=== PATIENT | female | born 1970 | race Caucasian/White ===

== ENCOUNTER 2022-10-16 06:02 | Day surgery (SDC) | payer OTHER, SELFPAY ==
[2022-10-16 05:56] VITALS: BMI 67.3
[2022-10-16] MEDS: Lactated Ringers 1,000 ML 100 ML IVCONT (06:30)
[2022-10-16 06:33] LABS: UPreg QC Valid YES; Urine Pregnancy NEGATIVE (NEGATIVE)
[2022-10-16 07:07] VITALS: BP 150/84; PULSE 88; RESP 18; TEMP 36.9; O2SAT 95
--- NOTE | 2022-10-16 07:07 | PC.NURSE ---
IV attempt by author. Insertion by nallely ching RN
--- NOTE | 2022-10-16 07:22 | P.CONAN_ITS ---
HPI - Anesthesia Eval Consult details Narrative: Colonoscopy, supermorbid obesity [facility] Past Medical History Medical History Esophageal foreign body GERD (gastroesophageal reflux disease) Hiatal hernia History of COVID-19 TANYA on CPAP Seasonal allergies Family History Family history of problems with anesthesia: No Surgical History Surgical History H/O esophagogastroduodenoscopy H/O repair of right rotator cuff Hx of tympanostomy tubes History of Problems with Anesthesia: No Social History Social History Patient Tobacco Use Status: Never used Tobacco Are you DNR?: No Advance Directives: No Advance Directives Information Provided: Yes Nutrition Risks: No Nutritional Risk FDLMP: two weeks ago Meds Allergies Allergy/AdvReac Type Severity Reaction Status Date / Time penicillin G Allergy Mild Hives Verified 09/01/22 11:51 cinnamon Allergy Unknown Verified 10/15/22 14:02 feathers Allergy Unknown Verified 10/15/22 14:02 latex Allergy Unknown Verified 10/15/22 14:02 levofloxacin [From Levaquin] Allergy Hives Verified 10/15/22 13:57 shellfish derived Allergy Unknown Verified 10/15/22 14:02 Active Medications: Current Medications Albuterol Sulfate (Albuterol Sulfate (0.083%) 2.5 Mg/3 Ml Vial.Neb) 2.5 mg INHALE ONCE PRN PRN Reason: Shortness of Breath/Wheezing Lactated Ringer's (Lr) 1,000 mls @ 100 mls/hr IVCONT .Q10H MELVIN Last Admin: 10/16/22 06:30 Dose: 100 mls/hr Exam Exam Date and Time: October 16, 202222 Height,Weight and Vital Signs: Height 5 ft 6 in Weight 189.148 kg Last Vital Signs Temp 98.4 F 10/16/22 07:07 Pulse 88 10/16/22 07:07 Resp 18 10/16/22 07:07 BP 150/84 H 10/16/22 07:07 Pulse Ox 95 10/16/22 07:07 O2 Del Method Room Air 10/16/22 07:07 Pertinent Lab Results Pertinent Lab Results: Laboratory Tests 10/16/22 06:15 Urine Test NEGATIVE Airway Mallampati Class: III TM Dist: <=3cm Neck ROM: Poor Heart: rrr Lungs: cta Assessment and Plan Assessment Anesthesia Assessment: Anesthesia Plan Discussed and Chart Reviewed Final Anesthetic Review Family History of Problems with Anesthesia: No History of Problems with Anesthesia: No NPO: Yes ASA Class: III Final Preanesthetic Review: No Changes in Pt Med Stat, Meds/Allgs Chart Reviewed, Consent Obtained/Reviewed and Anes Risks/Benef Reviewed Patient Risk: High Procedure Risk: Intermediate Anesthetic Plan Anesthetic Plan: MAC: and Agree w/ Assess. and Plan Disposition: Standard PACU
--- NOTE | 2022-10-16 07:35 | MHC.SHP ---
Pre-Procedural Eval Section A Date of Service: 10/16/22 Section B Chief Complaint: Screening Details of Present Illness: screening Relevant Social History: None Present Medications: see Short Stay Collaborative assessment Medical History: No relevant PMH History of Previous Operations: No relevant previous surgery Allergies: Allergies Allergy/AdvReac Type Severity Reaction Status Date / Time penicillin G Allergy Mild Hives Verified 09/01/22 11:51 cinnamon Allergy Unknown Verified 10/15/22 14:02 feathers Allergy Unknown Verified 10/15/22 14:02 latex Allergy Unknown Verified 10/15/22 14:02 levofloxacin [From Levaquin] Allergy Hives Verified 10/15/22 13:57 shellfish derived Allergy Unknown Verified 10/15/22 14:02 Review of Systems Sugical H&P ROS: Negative: Constitution, Cardiovascular, Respiratory, Neurological, Psychiatric, Hem-Onc, Allergic/Immunologic, Gastrointestinal, Genitourinary, Musculoskeletal, Integumentary, Endocrine and Eyes/Ears/Nose/Throat Exam Surgical H&P Exam: Normal: HEENT, Normal: Heart, Normal: Lungs, Normal: Extremities, Normal: Abdomen, Normal: Skin and Normal: Neurological Plan Diagnosis/Plan: Unchanged I have reviewed the history and physical and performed a pertinent physical examination on my patient. No changes have occurred unless specified. Time Spent With Patient Time: Total time managing care of this patient today ____ minutes.
--- NOTE | 2022-10-16 08:11 | PM.OP ---
Brief Operative Note Date of Service: 10/16/22 Pre-op diagnosis: screening Procedure: colonoscopy Surgeon: Luis Antonio Jarquin Anesthesia: MAC Was an Revenue Investigator used for this Procedure?: No Estimated blood loss (mL): 0 Pathology: other Condition: stable Disposition: PACU
[2022-10-16 08:15] VITALS: BP 151/80; PULSE 67; RESP 16; TEMP 36.4; O2SAT 97
[2022-10-16 08:33] VITALS: BP 154/76; PULSE 53; RESP 17; TEMP 36.1; O2SAT 97
--- NOTE | 2022-10-16 08:37 | OP_ITS ---
DATE OF SERVICE: 10/16/2022 SURGEON: Luis Antonio Jarquin MD INDICATIONS: Colon cancer screening. PREOPERATIVE DIAGNOSIS: POSTOPERATIVE DIAGNOSIS: PROCEDURE PERFORMED: Colonoscopy to the terminal ileum with snare polypectomy. ESTIMATED BLOOD LOSS: COMPLICATIONS: ANESTHESIA: Monitored anesthesia care. ASSISTANTS: SPECIMENS: DESCRIPTION OF PROCEDURE: A history and physical was performed. The risks and benefits of the procedure were explained to the patient. Informed consent was obtained. The patient was placed in the left lateral decubitus position. A digital rectal exam was performed and was found to be normal. The Olympus pediatric video colonoscope was introduced into the rectum and advanced to the cecum without difficulty. The cecum was identified by transillumination, palpation, and identification of ileocecal valve. Examination was performed, and the scope was removed. She tolerated the procedure well and was taken to the recovery area in stable condition. FINDINGS: The terminal ileum was examined and appeared normal. The visualized colonic mucosa was normal. The quality of prep was good. No lesions were seen except for a small 6 mm polyp, which was identified and removed with a snare. The polyp was located at 90 cm from the anal verge. Retroflexed examination showed small internal hemorrhoids. IMPRESSION: Colon polyp. RECOMMENDATION: Follow up the biopsy results. MD DILLON Stanford/MODL / [id number]
== END 2022-10-16 12:14 | disposition home or self-care (01) ==
PROVIDERS: Anesthesiology; PCP Internal Medicine; Visit Provider Internal Medicine Gastroenterology
PROC: 0DJD8ZZ Inspection of Lower Intestinal Tract, Via Natural or Artificial Opening Endoscopic (ICD-10-PCS; CPT 45378; principal; 2022-10-16 07:30)
DX: Z12.11 Encounter for screening for malignant neoplasm of colon (principal); K63.5 Polyp of colon; K64.8 Other hemorrhoids; K21.9 Gastro-esophageal reflux disease without esophagitis; K44.9 Diaphragmatic hernia without obstruction or gangrene; G47.33 Obstructive sleep apnea (adult) (pediatric); Z99.89 Dependence on other enabling machines and devices; Z83.3 Family history of diabetes mellitus; Z83.71 Family history of colonic polyps; Z88.0 Allergy status to penicillin
CPT/HCPCS: 45380; 45385; 81025; 88305

== ENCOUNTER 2023-05-06 11:59 | Outpatient (AMB) | payer OTHER, SELFPAY ==
[2023-05-06 12:02] VITALS: BP 116/68; PULSE 97; TEMP 37.9; O2SAT 96; BMI 67.9
--- NOTE | 2023-05-06 12:02 | AM.OFFWIN_ITS ---
Intake Vital Signs 05/06/23 12:02 Height 5 ft 6 in Weight 421 lb BMI 67.9 BP 116/68 Blood Pressure Location Lt brachial Position Sitting Pulse 97 Pulse Source Pulse Oximeter Temp 100.2 F Temp Source Oral Pulse Oximetry (%) 96 Oxygen Delivery Method Room Air Intake Visit Reasons: EP labored breathing fever congestion cough aches Intake Note: pt is here today for labored breathing fever congestion cough aches started 2 weeks ago Patient Tobacco Use Status: Never used Tobacco Allergies penicillin G Allergy (Mild, Verified 05/06/23 12:03) Hives cinnamon Allergy (Verified 05/06/23 12:03) Unknown feathers Allergy (Verified 05/06/23 12:03) Unknown latex Allergy (Verified 05/06/23 12:03) Unknown levofloxacin [From Levaquin] Allergy (Verified 05/06/23 12:03) Hives shellfish derived Allergy (Verified 05/06/23 12:03) Unknown Medication List - Last Reconciled 05/06/23 by Claudette Mandujano, JOHN albuterol sulfate 90 mcg/actuation 2 inhalations inhalation Q4-6H PRN azithromycin 500 mg PO DAILY 3 days prednisone 50 mg PO DAILY 5 days Do you need a note to return to daycare/school/sports/work: No HPI HPI Comments History of Present Illness Details 52 y/o female who presents to walk in [facility] with c/o URI symptoms. Reports productive cough, hoarseness, Subjective fevers, GI upset and wheezing. Reports that symptoms started ~ 1 week ago. [facility] Medical History TANYA on CPAP Esophageal foreign body History of COVID-19 Hiatal hernia GERD (gastroesophageal reflux disease) Seasonal allergies Surgical History H/O repair of right rotator cuff Hx of tympanostomy tubes H/O esophagogastroduodenoscopy Social History Patient Tobacco Use Status: Never used Tobacco Review of Systems Const All systems reviewed & are unremarkable except as noted in HPI and below Physical Exam Vital Signs: Last Vital Signs Temp 100.2 F 05/06/23 12:02 Pulse 97 05/06/23 12:02 BP 116/68 05/06/23 12:02 Pulse Ox 96 05/06/23 12:02 Oxygen Delivery Method Room Air 05/06/23 12:02 BMI result Body Mass Index 67.9 Const General: no acute distress; No acute distress Nutritional Appearance: obese morbidly obese HEENT Head: Yes normocephalic Ears: external ears normal and TM's normal bilaterally General nose exam: Normal external nose present and Normal nasal mucous membranes and turbinates present Face and sinus: Yes sinuses nontender Mouth: moist mucous membranes Throat: Yes postnasal drainage Resp Effort & Inspection: audible wheezes and Actively coughing Auscultation: no crackles, no rales, no rhonchi and wheezes scattered wheezes Cardio Rate: regular rate Rhythm: regular rhythm Office Procedures Nebulizer Treatment Nebulizer Treatment [id number]-Uvmrxpodu/MDI RX initial, or Nebulizer Subsequent Treatment Office Meds ipratropium 0.5 mg-albuterol 3 mg (2.5 mg base)/3 mL nebulization soln Performing Provider: Claudette Mandujano NP Performing Location: [facility] Administered by: Marissa Velasco RN on 05/06/23 12:44 Dose Route Admin Location Dispensed Lot Number Expiration Date [place] Child Support Specialist 3 mL inhalation 3 mL [id number] 01/04/24 8916-0054-00 [facility] Assessment & Plan Assessment & Plan (1) Upper respiratory infection: Code(s): J06.9 - Acute upper respiratory infection, unspecified Qualifiers: URI type: unspecified viral URI Qualified Code(s): J06.9 - Acute upper respiratory infection, unspecified Plan: - Rest - Warm fluids for hydration - OTC cold medicines - Report any severe SOB, Wheezing, Chest pain, high fevers, nausea and vomiting. (2) Wheezing on auscultation: Code(s): R06.2 - Wheezing Plan: - Rest - Warm fluids for hydration - OTC cold medicines - Report any severe SOB, Wheezing, Chest pain, high fevers, nausea and vomiting. Plan - Rest - Warm fluids for hydration - OTC cold medicines - Report any severe SOB, Wheezing, Chest pain, high fevers, nausea and vomiting. Orders: Orders SARS-CoV2/FLU/RSV Today J06.9 - Acute upper respiratory infection, unspecified, R06.2 - Wheezing AMB Nebulizer Treatment Today R06.2 - Wheezing Medications: New azithromycin 500 mg PO DAILY 3 days 3 tabs 0RF J06.9 - Acute upper respiratory infection, unspecified, R06.2 - Wheezing prednisone 50 mg PO DAILY 5 days 5 tabs 0RF J06.9 - Acute upper respiratory infection, unspecified, R06.2 - Wheezing Changed From albuterol sulfate 90 mcg/actuation 1 inh inhalation Q4-6H PRN 6.7 grams 0RF shortness of breath or wheezing J06.9 - Acute upper respiratory infection, unspecified To albuterol sulfate 90 mcg/actuation 2 inhalations inhalation Q4-6H PRN 8.5 grams 0RF shortness of breath or wheezing J06.9 - Acute upper respiratory infection, unspecified Coding Level of Care Code Est Pt Level 3 (13471) Diagnoses Viral upper respiratory tract infection J06.9 URI type: unspecified viral URI Wheezing on auscultation R06.2 CPT Codes Nebulizer Treatment - Nebulizer Treatment, initial or subsequent: [id number]- Nebulizer/MDI RX initial, or Nebulizer Subsequent Treatment ([id number]) Time Spent (min) 20
== END 2023-05-06 13:36 | disposition home or self-care (01) ==
PROVIDERS: PCP Internal Medicine; Visit Provider Nurse Practitioner Family
DX: J06.9 Acute upper respiratory infection, unspecified (principal); R06.2 Wheezing
CPT/HCPCS: 94640; 99213; J7620

== ENCOUNTER 2023-05-06 17:10 | Outpatient (REF) | payer OTHER, SELFPAY ==
[2023-05-06 17:52] LABS: Influenza A PCR POSITIVE (Negative); Influenza B PCR NEGATIVE (Negative); Resp Syncy Virus RNA Qual PCR NEGATIVE (Negative); SARS COV2 PCR INHOUSE NEGATIVE (Negative)
== END 2023-05-06 17:11 | disposition home or self-care (01) ==
LOC: HO.HMGCLNP 17:10
PROVIDERS: Visit Provider Nurse Practitioner Family
DX: Z11.52 Encounter for screening for COVID-19 (principal); R06.2 Wheezing; J06.9 Acute upper respiratory infection, unspecified
CPT/HCPCS: 0241U

== ENCOUNTER 2023-07-02 10:42 | Outpatient (AMB) | payer OTHER, SELFPAY ==
[2023-07-02 10:45] VITALS: BP 150/100; PULSE 71; TEMP 36.6; O2SAT 97; BMI 67.9
--- NOTE | 2023-07-02 10:45 | MHC.OFFWIV ---
Intake Vital Signs 07/02/23 10:45 Height 5 ft 6 in Weight 421 lb BMI 67.9 BP 150/100 H Blood Pressure Location Lt brachial Position Sitting Pulse 71 Pulse Source Pulse Oximeter Temp 97.8 F Temp Source Temporal Artery Scan Pulse Oximetry (%) 97 Oxygen Delivery Method Room Air Intake Visit Reasons: EP difficulty breathing, chest pain and SOB Intake Note: pt is here today for difficulty breathing chest pain and SOB started 4 days ago Patient Tobacco Use Status: Never used Tobacco Allergies penicillin G Allergy (Mild, Verified 07/02/23 10:49) Hives cinnamon Allergy (Verified 07/02/23 10:49) Unknown feathers Allergy (Verified 07/02/23 10:49) Unknown latex Allergy (Verified 07/02/23 10:49) Unknown levofloxacin [From Levaquin] Allergy (Verified 07/02/23 10:49) Hives shellfish derived Allergy (Verified 07/02/23 10:49) Unknown HPI HPI Comments History of Present Illness Details 53 y/o female patient who presents to walk in clinic with c/o SOB, difficulty moving air and speaking and cough and wheezing. Pt was previously seen by me at Walk in clinic for similar symptoms. She had received Neb Tx in office with good relief. Denies h/o Respiratory problems. [facility] Medical History TANYA on CPAP Esophageal foreign body History of COVID-19 Hiatal hernia GERD (gastroesophageal reflux disease) Seasonal allergies Surgical History H/O repair of right rotator cuff Hx of tympanostomy tubes H/O esophagogastroduodenoscopy Social History Patient Tobacco Use Status: Never used Tobacco Review of Systems Const All systems reviewed & are unremarkable except as noted in HPI and below Physical Exam Vital Signs: Last Vital Signs Temp 97.8 F 07/02/23 10:45 Pulse 71 07/02/23 10:45 BP 150/100 H 07/02/23 10:45 Pulse Ox 97 07/02/23 10:45 Oxygen Delivery Method Room Air 07/02/23 10:45 BMI result Body Mass Index 67.9 Const General: acute distress mild and respiratory; No comfortable Nutritional Appearance: obese morbidly obese Orientation/consciousness: patient oriented x3 HEENT Head: Yes normocephalic Ears: external ears normal and TM's normal bilaterally General nose exam: Normal nasal mucous membranes and turbinates present and No nasal discharge present Mouth: moist mucous membranes Throat: Yes posterior oropharynx normal Resp Effort & Inspection: not able to speak in complete sentences, audible wheezes, Actively coughing and labored Auscultation: no crackles, no rales, rhonchi and wheezes Cardio Rate: regular rate Neuro General: patient oriented x3 Assessment & Plan Assessment & Plan (1) Upper respiratory infection: Code(s): J06.9 - Acute upper respiratory infection, unspecified Qualifiers: URI type: unspecified URI Qualified Code(s): J06.9 - Acute upper respiratory infection, unspecified Plan: - Pt might benefit with referral to Pulmonology. (2) Wheezing on auscultation: Code(s): R06.2 - Wheezing Plan: - In office Neb - Start Symbicort - F/U with PCP if no improvement. Orders: Orders AMB Nebulizer Treatment Today R06.2 - Wheezing Medications: New ipratropium-albuterol 0.5 mg-3 mg(2.5 mg base)/3 mL 3 mL inhalation ONCE 3 mL 0RF R06.2 - Wheezing prednisone 50 mg PO DAILY 5 days 5 tabs 0RF wheezing J06.9 - Acute upper respiratory infection, unspecified, R06.2 - Wheezing azithromycin 500 mg PO DAILY 5 days 5 tabs 0RF J06.9 - Acute upper respiratory infection, unspecified, R06.2 - Wheezing budesonide-formoterol 80-4.5 mcg/actuation (Symbicort) 2 puffs inhalation BID 10.2 grams 1RF wheezing J06.9 - Acute upper respiratory infection, unspecified, R06.2 - Wheezing Coding Level of Care Code Est Pt Level 4 (02621) Diagnoses Upper respiratory tract infection, unspecified type J06.9 URI type: unspecified URI Wheezing on auscultation R06.2 Time Spent (min) 20
== END 2023-07-02 13:59 | disposition home or self-care (01) ==
PROVIDERS: PCP Internal Medicine; Visit Provider Nurse Practitioner Family
DX: J06.9 Acute upper respiratory infection, unspecified (principal); R06.2 Wheezing
CPT/HCPCS: 99214

== ENCOUNTER 2023-09-13 09:53 | Outpatient (AMB) | payer OTHER, SELFPAY ==
[2023-09-13 10:59] VITALS: BP 110/78; PULSE 78; TEMP 37.1; O2SAT 99; BMI 70.8
--- NOTE | 2023-09-13 10:59 | MHC.OFFWIV ---
Intake Vital Signs 09/13/23 10:59 Height 5 ft 6 in Weight 439 lb BMI 70.8 BP 110/78 Blood Pressure Location Lt brachial Position Sitting Pulse 78 Pulse Source Pulse Oximeter Temp 98.7 F Temp Source Temporal Artery Scan Pulse Oximetry (%) 99 Oxygen Delivery Method Room Air Intake Visit Reasons: Cluster headaches (progressively worse) Intake Note: pt is her today for cluster headache on rt side of head started 2 weeks ago Patient Tobacco Use Status: Never used Tobacco Allergies penicillin G Allergy (Mild, Verified 09/13/23 11:06) Hives cinnamon Allergy (Verified 09/13/23 11:06) Unknown feathers Allergy (Verified 09/13/23 11:06) Unknown latex Allergy (Verified 09/13/23 11:06) Unknown levofloxacin [From Levaquin] Allergy (Verified 09/13/23 11:06) Hives shellfish derived Allergy (Verified 09/13/23 11:06) Unknown Do you need a note to return to daycare/school/sports/work: No HPI HPI Comments History of Present Illness Details Patient is a 53-year-old female complaining of 2 weeks of ?cluster GRANADOS which is getting worse. She states she does have a history of migraines but these do not feel like that. She states her psychiatrist without it was a cluster headache due to her increase in anxiety recently. So she prescribed her 0.125 mg of clonazepam she was taking up to 3 of those at a time which seemed to help on and Wednesday. She states that on Wednesday which was 2 days ago, her headaches have been getting worse. She denies any photophobia or phonophobia or tearing of her eyes. She describes the pain as a stabbing on the top of her head on the right side that radiates down the right side of her neck. She does endorse some nausea but no vomiting. She is teary and struggling to articulate her words. She describes this headache as ?the worst headache of her life . She has tried taking Motrin and Tylenol as well and those are not working. She states she has not had migraine medication in years but again states this does not feel like her typical migraine. [facility] Medical History (Updated 09/13/23 @ 11:27 by Melissa Massey PA-C) TANYA on CPAP Esophageal foreign body History of COVID-19 Hiatal hernia GERD (gastroesophageal reflux disease) Seasonal allergies Surgical History H/O repair of right rotator cuff Hx of tympanostomy tubes H/O esophagogastroduodenoscopy Social History Patient Tobacco Use Status: Never used Tobacco Review of Systems Const All systems reviewed & are unremarkable except as noted in HPI and below Physical Exam Vital Signs: Last Vital Signs Temp 98.7 F 09/13/23 10:59 Pulse 78 09/13/23 10:59 BP 110/78 09/13/23 10:59 Pulse Ox 99 09/13/23 10:59 Oxygen Delivery Method Room Air 09/13/23 10:59 BMI result Body Mass Index 70.8 Const General: cooperative, healthy appearing, well developed and acute distress (teary) Nutritional Appearance: obese Orientation/consciousness: patient oriented x3 Limitations: no limitations HEENT Head: Yes normal to inspection Eyes General: appearance normal, both eyes and all related structures Neck Neck: Yes normal visual inspection and Yes full ROM Resp Effort & Inspection: normal respiratory effort and able to speak in complete sentences Skin General skin exam: no rashes or lesions noted Neuro General: patient oriented x3 Extrem General: Yes normal to inspection Assessment & Plan Assessment & Plan (1) Headache: Code(s): R51.9 - Headache, unspecified Qualifiers: Headache type: unspecified Headache chronicity pattern: acute headache Intractability: intractable Qualified Code(s): R51.9 - Headache, unspecified Plan: Sent to Emergency Department, called in for [facility] to expect the patient. Her friend is driving her. Plan See above Coding Level of Care Code Est Pt Level 5 (10050) Diagnoses Acute intractable headache, unspecified headache type R51.9 Headache type: unspecified Headache chronicity pattern: acute headache Intractability: intractable
== END 2023-09-13 11:50 | disposition home or self-care (01) ==
PROVIDERS: PCP Internal Medicine; Visit Provider Physician Assistant
DX: R51.9 Headache, unspecified (principal)
CPT/HCPCS: 99213

== ENCOUNTER 2023-09-13 11:42 | Emergency (ER) | payer OTHER, SELFPAY ==
--- NOTE | ~2023-09-13 | CT_ITS ---
EXAMINATION: CT ANGIOGRAM HEAD CT ANGIOGRAM NECK CLINICAL INFORMATION: Headache. Aneurysm. COMPARISON: None available. TECHNIQUE: Initial noncontrast switchboard operator assistant imaging of the head and neck was performed. Noncontrast head CT was also performed. Test bolus sequences followed by intravenous administration 70 mL of Omnipaque 350. Helical imaging was performed in the axial plane from the aortic arch to the skull vertex. Delayed postcontrast imaging of the head was also performed. The data was processed at the product/device technologist's workstation for generation of MIP sequences. Angled MIPs and volume rendered reformatted images were also generated at an offline 3D workstation. Stenoses are assessed in accordance with NASCET criteria unless otherwise indicated. This CT examination was performed using dose optimization techniques as appropriate, variously including the following: *Automated exposure control. *Adjustment of mA and/or kV according to patient size (this includes techniques or standardized protocols for targeted exams where dose is matched to indication/reason for exam; i.e. extremities or head). *Use of iterative reconstruction technique. DLP: 2740 mGy-cm FINDINGS: CT Head: There is no evidence of acute intracranial hemorrhage or edematous territorial infarction. [place]-white matter differentiation is preserved. There is no abnormal attenuation within the brain parenchyma. The ventricles are normal in morphology and size. No evidence for obstructive hydrocephalus. Moderate expansion of the sella turcica with partial flattening of the pituitary gland. Normal positioning of the cerebellar tonsils. No abnormal mass effect or midline shift. No extra-axial fluid collections. No pathologic intra-axial enhancement or regional oligemia. No acute soft tissue or osseous abnormalities. Mild mucosal thickening of the paranasal sinuses. The mastoid air cells and middle ear cavities are clear. CT Neck: The thyroid gland and remaining cervical soft tissues are within normal limits. Straightening of the normal cervical lordosis. Moderate degenerative disc disease from C4-C7. Left central partial ossification of the posterior longitudinal ligament at the level of C5-C6. Facet and uncovertebral joint arthropathy leads to osseous encroachment on the neural foramina from C3-C6. CT Upper Chest: The visualized lung apices and upper mediastinum are within normal limits. Neck CTA: Aortic Arch: Normal contour and caliber. Classic 3 vessel branching pattern of the aortic arch. Great Vessel Origins: No significant stenosis of the branch origins. Right Common Carotid Artery: No focal stenosis or occlusion. Cervical Right Internal Carotid Artery: Normal opacification without focal stenosis or occlusion. Retropharyngeal course. Left Common Carotid Artery: No focal stenosis or occlusion. Cervical Left Internal Carotid Artery: Normal opacification without focal stenosis or occlusion. Retropharyngeal course. Cervical Right Vertebral Artery: Co-dominant. No focal stenosis or occlusion. Cervical Left Vertebral Artery: Co-dominant. No focal stenosis or occlusion. Brain CTA: Intracranial Internal Carotid Arteries: No focal stenosis or occlusion. Right Anterior Cerebral Artery: Normal A1 segment. Normal opacification of the distal RACHEL segments. Left Anterior Cerebral Artery: Normal A1 segment. Normal opacification of the distal RACHEL segments. Anterior Communicating Artery: Normal. Right Middle Cerebral Artery: Normal M1 segment of the MCA without focal stenosis or occlusion. Normal arborization of the distal segments. Left Middle Cerebral Artery: Normal M1 segment of the MCA without focal stenosis or occlusion. Normal arborization of the distal segments. Right Vertebral Artery: Normal V4 segment. Normal opacification of the proximal segments of the posterior inferior cerebellar artery. Left Vertebral Artery: Normal V4 segment. Normal opacification of the proximal segments of the posterior inferior cerebellar artery. Basilar Artery: Normal without focal stenosis or occlusion. Normal appearance of the proximal superior cerebellar arteries. Right Posterior Cerebral Artery: Normal P1 segment. Normal opacification of the distal ORACLE ETL DEVELOPER segments. Left Posterior Cerebral Artery: Normal P1 segment. Normal opacification of the distal ORACLE ETL DEVELOPER segments. Normal opacification of the superior sagittal, straight, transverse, and sigmoid sinuses. CT/CT angio head neck IMPRESSION: 1. No evidence of acute intracranial hemorrhage or edematous territorial infarction. 2. CTA of the head and neck without proximal occlusion or flow-limiting stenosis. No demonstrated intracranial aneurysm. 3. Moderate multilevel degenerative spondyloarthropathy of the cervical spine. Partial ossification of the posterior longitudinal ligament at the level of C5-C6. Osseous encroachment on the neural foramina from C3-C6.
[2023-09-13 13:15] VITALS: BP 153/102; PULSE 69; RESP 26; TEMP 36.4; O2SAT 99; BMI 69.4
--- NOTE | 2023-09-13 13:18 | ED_ITS ---
HPI - General Adult General Chief complaint: Headache Stated complaint: Headache 12 days Time Seen by Provider: 09/13/23 13:44 Source: patient and family Mode of arrival: ambulatory Limitations: no limitations History of Present Illness ED Provider: DR. Kirby HPI narrative: 53-year-old female came in for evaluation of headache for the past 12 days. For the past 12 days patient been having fluctuating headache that is all was constant for the past 12 days but waxes and wanes, headache is associated with nausea but no vomiting, no photophobia, no neck stiffness, no fever, no chills. Patient is known to have anxiety and was evaluated for this headache by PCP and psychiatrist patient was prescribed benzos PRN for headache. No trauma, no fall or head injury. No family history of cerebral aneurysm, brain bleed. Related Data Previous Rx's ?Medication ?Instructions ?Recorded albuterol sulfate 90 mcg/actuation 2 inh inhalation Q4-6H PRN 05/06/23 aerosol inhaler shortness of breath or wheezing #8.5 grams azithromycin 500 mg tablet 500 mg PO DAILY 5 days #5 tabs 07/02/23 fluticasone furoate 100 1 inh inhalation DAILY #60 ea 07/02/23 mcg-vilanterol 25 mcg/dose inhalation powder (Breo Ellipta) prednisone 50 mg tablet 50 mg PO DAILY wheezing 5 days #5 07/02/23 tabs Allergies Allergy/AdvReac Type Severity Reaction Status Date / Time penicillin G Allergy Mild Hives Verified 09/13/23 13:19 cinnamon Allergy Unknown Verified 09/13/23 13:19 feathers Allergy Unknown Verified 09/13/23 13:19 latex Allergy Unknown Verified 09/13/23 13:19 levofloxacin [From Levaquin] Allergy Hives Verified 09/13/23 13:19 shellfish derived Allergy Unknown Verified 09/13/23 13:19 Review of Systems 2 Review of Systems: All other systems are reviewed and are negative Constitutional: Reports as per HPI and Reports no additional constitutional complaints Eyes: Reports as per HPI and Reports no additional eye complaints Reports system reviewed and no additional complaints, except as documented Cardiovascular: Reports as per HPI and Reports no additional cardiovascular complaints Respiratory: Reports as per HPI and Reports no additional respiratory complaints Gastrointestinal: Reports as per HPI and Reports no additional gastrointestinal complaints Genitourinary: Reports no additional female genitourinary complaints Musculoskeletal: Reports no additional musculoskeletal complaints Skin/Breast: Reports system reviewed and no additional complaints, except as docu Psychiatric: Reports no additional psychiatric complaints Endocrine: Reports no additional endocrine complaints Hematologic/Lymphatic: Reports no additional hematologic/lymphatic complaints Allergic/Immunologic: Reports no additional allergic/immunologic complaints Reports system reviewed and no additional complaints, except as documented and Reports Abnormal speech present REPLACED BY [facility] Past Medical History Medical History TANYA on CPAP Esophageal foreign body History of COVID-19 Hiatal hernia GERD (gastroesophageal reflux disease) Seasonal allergies Surgical History H/O repair of right rotator cuff Hx of tympanostomy tubes H/O esophagogastroduodenoscopy Social History Social History Patient Tobacco Use Status: Never used Tobacco Advance Directives: No Advance Directives Information Provided: No Do you have a plan to hurt others: No Plan Physical Exam ED Vital Signs: Vital Signs - 24 hr 09/13/23 13:15 09/13/23 16:09 09/13/23 16:12 Temperature 97.5 F 98.1 F Pulse Rate 69 72 Respiratory Rate 26 H 18 Blood Pressure 153/102 H 138/90 H 138/90 H Pulse Oximetry 99 99 Oxygen Delivery Method Room Air Room Air BMI result Body Mass Index 69.4 Vital signs have been reviewed and appear to be correct. Blood pressure elevated. Heart rate normal. Respiratory rate normal. Temperature normal. Oxygen saturation normal. Appearance: Alert. Oriented X3. No acute distress. Head: Normal external exam. Normocephalic. Atraumatic. No [place] signs noted. No raccoon eyes noted Eyes: PERRLA. EOMI. Conjunctiva and sclera normal. Eyelids normal. ENT: TM's Normal. Pharynx normal. Uvula midline. Moist mucous membranes. No trismus noted. No drooling noted. No muffled voice noted. Neck: Normal inspection. Neck supple. FROM. No adenopathy. Thyroid Normal. No meningeal signs. No neck mass noted. CVS: Normal heart rate and rhythm. Heart sound normal. No murmurs noted. Pulses normal throughout. Respiratory: No respiratory distress. Painless inspiration. Breath sounds normal. No wheezes/rales/rhonchi noted. Chest nontender. No accessory muscle usage noted or decreased air movement noted. Abdomen: Soft and nontender. Bowel sounds normal in all 4 quadrants. No distention noted. No organomegaly noted. No visible injury noted. Back: No CVA tenderness. Full range of motion noted. Skin: Skin warm and dry. Normal skin color. Normal skin turgor. No rashes/lesions/lacerations noted. Extremities: No lower extremity edema. Extremities exhibit normal range of motion. Extremities nontender. Neuro: Oriented X 3. Cranial nerve exam: II-XII are grossly intact No motor deficit. No sensory deficit. Reflexes normal. NIH Stroke Scale Time: 14:05 Level of Consciousness: Alert Level of Consciousness Questions: Answers both questions correctly Level of Consciousness Commands: Performs both tasks correctly Best Gaze: Normal Visual: No visual loss Facial Palsy: Normal Motor Arm (Right): No drift Motor Arm (Left): No drift Motor Leg (Right): No drift Motor Leg (Left): No drift Limb Ataxia: Absent Sensory: Normal Best Language: No aphasia Dysarthia: Normal Extinction and Inattention: No abnormality Score: 0 Course Course Course Narrative: RME performed by Dennise Chavira PA-C. Patient is a 53 year old assigned female at presenting to the emergency department with a sudden onset right sided headache. Patient states she is having a right sided headache that is the worst of her life. Detailed physical exam and review of systems are deferred to the chemical dependency nurse. Labs, imaging, and swabs ordered. Patient placed back in the waiting room pending room availability and results. Reevaluation(s) Reevaluation #1: Constant headache for 12 days at waxes and wanes, normal neuro exam, patient is pending head CT and CT angio rule out aneurysm, the case signed out to Dr. good Patient noted to be hypertensive in the emergency department was given amlodipine will check serial blood pressure while in the ED and consider if patient need to be on antihypertensive medication, the case was discussed with Dr. Good. Time: 15:45 Medications Administered Discontinued Medications Generic Name Dose Route Start Last Admin Trade Name Freq PRN Reason Stop Dose Admin Amlodipine Besylate 2.5 mg 09/13/23 15:51 09/13/23 16:09 Amlodipine Besylate 2.5 Mg Tablet PO 09/13/23 15:52 2.5 mg ONCE ONE Administration Protocol Diphenhydramine HCl 50 mg 09/13/23 14:01 09/13/23 14:26 Diphenhydramine Hcl 50 Mg/Ml Vial IVPUSH 09/13/23 14:02 50 mg ONCE ONE Administration Sodium Chloride 1,000 mls @ 999 mls/hr 09/13/23 14:01 09/13/23 14:50 Ns IV 09/13/23 15:01 999 mls/hr .Q1H1M ONE Administration Ondansetron HCl 4 mg 09/13/23 14:01 09/13/23 14:26 Ondansetron Hcl 4 Mg/2 Ml Vial IVPUSH 09/13/23 14:02 4 mg ONCE ONE Administration Medical Decision Making Differential Diagnosis Differential Diagnoses: The differential diagnosis associated with the presentation includes (Intracranial bleed, intracranial aneurysm, cluster headache, migraine, electrolyte derangement, severe anemia, hypertension.) Admission/Observation Consideration of admission/observation: Escalation of care including admission/observation considered Lab Data MDM Lab Attestation statement: I reviewed the patient's lab results. 09/13/23 13:43 09/13/23 13:43 Labs: Lab Results 09/13/23 09/13/23 Range/Units 13:43 13:46 WBC 8.4 (4.8-10.8) X10*3/uL RBC 5.34 (4.20-5.50) X10*6/uL Hgb 15.1 (12.0-16.0) g/dl Hct 44.7 (37.0-47.0) % MCV 83.7 (80.0-98.0) fL MCH 28.3 (27.0-33.0) pg MCHC 33.8 (31.0-35.0) g/dl RDW 15.3 (11.0-16.0) % Plt Count 211 (160-400) X10*3/uL MPV 8.3 L (9.4-12.3) fL Immature Gran % (Auto) 0.5 H (0.0-0.4) % Neut % (Auto) 55.5 (45-73) % Lymph % (Auto) 35.1 (20-40) % [place] % (Auto) 5.7 (2-11) % Eos % (Auto) 2.6 (0-4) % Baso % (Auto) 0.6 (0-2) % Lymph # (Auto) 2.9 (1.2-4.9) X10*3/uL [place] # (Auto) 0.5 (0.1-1.2) X10*3/uL Eos # (Auto) 0.2 (0.0-0.4) X10*3/uL Baso # (Auto) 0.1 (0.0-0.2) X10*3/uL Abs Immat Gran (auto) 0.04 H (0.00-0.03) X10*3/uL Absolute Neuts (auto) 4.7 (2.0-8.3) x10*3/uL Absolute Nucleated RBC 0.000 (0.0-0.012) X10*3/uL Nucleated RBC % (auto) 0.0 (0.0-0.2) /100WBC PT 11.3 (11.1-13.3) SEC INR 0.9 (0.9-1.1) APTT 32.6 (26.0-36.8) SEC Sodium 140 (135-145) mmol/L Potassium 4.1 (3.3-5.1) mmol/L Chloride 106 (96-108) mmol/L Carbon Dioxide 27 (22-29) mmol/L Anion Gap 11 L (12-20) BUN 19 H (9-16) mg/dL Creatinine 0.73 (0.5-1.4) mg/dL Estim Creat Clear Calc 163.5 Estimated GFR > 60 Random Glucose 92 (60-115) mg/dL Calcium 9.5 (8.4-10.2) mg/dL Magnesium 1.8 (1.6-2.6) mg/dL Total Bilirubin 0.7 (0.0-1.0) mg/dL AST 14 (5-31) U/L ALT 17 (0-31) U/L Alkaline Phosphatase 54 (39-117) U/L Total Protein 7.4 (6.5-8.0) g/dL Albumin 4.4 (3.5-5.0) g/dL Urine Color Yellow Urine Appearance Clear Urine pH 6.0 (5.0-9.0) Ur Specific [place] 1.015 (1.005-1.025) Urine Protein Negative (Neg-Trace) mg/dL Urine Glucose (UA) Negative (Negative) mg/dL Urine Ketones Negative (Negative) mg/dL Urine Blood Negative (Negative) Urine Nitrite Negative (Negative) Ur Leukocyte Esterase Moderate (2+) H (Negative) Urine RBC 0-2 (0-2) /HPF Urine WBC 21-50 H (0-5) /HPF Ur Squamous Epith Cells 6-10 (0-2) /HPF Urine Bacteria 1+ (None Seen) Hyaline Casts 0-2 (0-2) /LPF Urine Opiates Screen Not Detected (Not Detect) Ur Buprenorphine Scrn Not Detected (Not Detect) ng/mL Ur Oxycodone Screen Not Detected (Not Detect) ng/mL Urine Methadone Screen Not Detected (Not Detect) ng/mL Urine Fentanyl Screen Not Detected (Not Detect) Ur Barbiturates Screen Not Detected (Not Detect) Ur Phencyclidine Scrn Not Detected (Not Detect) Ur Amphetamines Screen Not Detected (Not Detect) U Benzodiazepines Scrn Not Detected (Not Detect) Urine Cocaine Screen Not Detected (Not Detect) U Marijuana (THC) Screen Not Detected (Not Detect) Influenza Type A (PCR) NEGATIVE (Negative) Influenza Type B (PCR) NEGATIVE (Negative) RSV RNA Qual (PCR) NEGATIVE (Negative) SARS-CoV-2 RNA (RT-PCR) NEGATIVE (Negative) Discharge Plan Discharge Clinical Impression: Hypertension Headache Qualifiers: Headache type: unspecified Headache chronicity pattern: acute headache I ntractability: intractable Qualified Code(s): R51.9 - Headache, unspecified Patient Disposition: Still a Patient Prescriptions: No Action albuterol sulfate 90 mcg/actuation HFA aerosol inhaler 2 inh inhalation Q4-6H PRN (Reason: shortness of breath or wheezing) Qty: 8.5 0RF ipratropium-albuterol 0.5 mg-3 mg(2.5 mg base)/3 mL solution for nebulization 3 ml inhalation ONCE Qty: 3 0RF prednisone 50 mg tablet 50 mg PO DAILY 5 Days Qty: 5 0RF azithromycin 500 mg tablet 500 mg PO DAILY 5 Days Qty: 5 0RF fluticasone furoate-vilanterol [Breo Ellipta] 100-25 mcg/dose blister with device 1 inh inhalation DAILY Qty: 60 1RF Print Language: [place]
[2023-09-13 13:47] LABS: MANUAL DIFF FLAG NO
[2023-09-13 13:50] LABS: Basophils Absolute Auto 0.1 X10*3/uL (0.0-0.2); Basophils Percent Auto 0.6 % (0-2); Eosinophils Absolute Auto 0.2 X10*3/uL (0.0-0.4); Eosinophils Percent Auto 2.6 % (0-4); Hematocrit 44.7 % (37.0-47.0); Hemoglobin 15.1 g/dl (12.0-16.0); Imm Gran Abs Auto 0.04 X10*3/uL (0.00-0.03); Imm Gran Pct Auto 0.5 % (0.0-0.4); Lymphocytes Absolute Auto 2.9 X10*3/uL (1.2-4.9); Lymphocytes Percent Auto 35.1 % (20-40); Mean Corpuscular HGB Conc 33.8 g/dl (31.0-35.0); Mean Corpuscular Hemoglobin 28.3 pg (27.0-33.0); Mean Corpuscular Volume 83.7 fL (80.0-98.0); Mean Platelet Volume 8.3 fL (9.4-12.3); Monocytes Absolute Auto 0.5 X10*3/uL (0.1-1.2); Monocytes Percent Auto 5.7 % (2-11); Neutrophils Absolute Auto 4.7 x10*3/uL (2.0-8.3); Neutrophils Percent Auto 55.5 % (45-73); Platelet Count 211 X10*3/uL (160-400); Red Blood Count 5.34 X10*6/uL (4.20-5.50); Red Cell Distribution Width 15.3 % (11.0-16.0); White Blood Count 8.4 X10*3/uL (4.8-10.8)
[2023-09-13 13:53] LABS: Appearance Urine Clear; Color Urine Yellow; Glucose Urine UA Negative (Negative); Leukocyte Esterase Urine Moderate (2+) (Negative); Nitrite Urine Negative (Negative); Specific Gravity - Urine 1.015 (1.005-1.025); UMIC TRIGGER UACC YES; Urine Blood Negative (Negative); Urine Ketones Negative (Negative); Urine Protein Negative (Neg-Trace)
[2023-09-13 13:56] LABS: Bacteria Urine 1+ (None Seen); Hyaline Casts Urine 0-2 /LPF (0-2); RBC Urine 0-2 /HPF (0-2); UACC Culture Trigger YES; WBC Urine 21-50 /HPF (0-5)
[2023-09-13 14:00] LABS: INTERNATIONAL NORM RATIO 0.9 (0.9-1.1); Prothrombin Time 11.3 SEC (11.1-13.3)
[2023-09-13 14:03] LABS: Alanine Aminotransferase 17 U/L (0-31); Albumin Level 4.4 g/dL (3.5-5.0); Alkaline Phosphatase 54 U/L (39-117); Anion Gap 11 (12-20); Aspartate Amino Transferase 14 U/L (5-31); Bilirubin Total 0.7 mg/dL (0.0-1.0); Blood Urea Nitrogen 19 mg/dL (9-16); Calcium 9.5 mg/dL (8.4-10.2); Carbon Dioxide 27 mmol/L (22-29); Chloride 106 mmol/L (96-108); Creatinine Clr Calc Pharmacy 163.5; Estimated Glomerular Filt Rate > 60; Glucose Random 92 mg/dL (60-115); Magnesium 1.8 mg/dL (1.6-2.6); Partial Thromboplastin Time 32.6 SEC (26.0-36.8); Potassium 4.1 mmol/L (3.3-5.1); Sodium 140 mmol/L (135-145); Total Protein 7.4 g/dL (6.5-8.0)
[2023-09-13 14:07] LABS: Amphetamine Screen Urine Not Detected (Not Detect); Barbiturates, Urine Not Detected (Not Detect); Benzodiazepines Screen Urine Not Detected (Not Detect); Buprenorphine Scr Not Detected (Not Detect); Cannabinoid Screen Urine Not Detected (Not Detect); Cocaine Screen Urine Not Detected (Not Detect); Fentanyl, urine Not Detected (Not Detect); Methadone Screen, Urine Not Detected (Not Detect); Opiate Screen Urine Not Detected (Not Detect); Oxycodone Screen Urine Not Detected (Not Detect); Phencyclidine Screen Urine Not Detected (Not Detect)
[2023-09-13] MEDS: ondansetron HCL 4 MG/2 ML VIAL IVPUSH (14:26)
[2023-09-13] MEDS: diphenhydrAMINE HCL 50 MG/ML VIAL IVPUSH (14:26)
[2023-09-13 14:30] LABS: Influenza A PCR NEGATIVE (Negative); Influenza B PCR NEGATIVE (Negative); Resp Syncy Virus RNA Qual PCR NEGATIVE (Negative); SARS COV2 PCR INHOUSE NEGATIVE (Negative)
[2023-09-13] MEDS: 0.9 % Sodium Chloride 1,000 ML 999 ML IV (14:50)
[2023-09-13 16:09] VITALS: BP 138/90
[2023-09-13] MEDS: amLODIPine Besylate 2.5 MG TABLET PO (16:09)
[2023-09-13 16:12] VITALS: BP 138/90; PULSE 72; RESP 18; TEMP 36.7; O2SAT 99
--- NOTE | 2023-09-13 16:42 | PC.NURSE ---
Patient currently at CT
[2023-09-13] MEDS: iohexoL 350 MG/ML 100 ML INFUS..BTL 85 ML IV (17:10)
[2023-09-13] MEDS: SUMAtriptan succinate 6 MG/0.5 ML VIAL SUBCUT (18:38)
[2023-09-13] MEDS: Ketorolac Tromethamine 30 MG/ML VIAL IVPUSH (18:38)
[2023-09-13] MEDS: cefuroxime axetiL 250 MG TABLET PO (18:38)
[2023-09-13 19:35] VITALS: BP 136/65; PULSE 68; RESP 20; TEMP 36.4; O2SAT 95
== END 2023-09-13 19:37 | disposition home or self-care (01) ==
PROVIDERS: Physician Assistant Medical; Emergency Provider Emergency Medicine
DX: R51.9 Headache, unspecified (principal); I10 Essential (primary) hypertension; Z03.818 Encounter for observation for suspected exposure to other biological agents ruled out
CPT/HCPCS: 0241U; 70496; 70498; 80053; 80307; 81001; 83735; 85025; 85610; 85730; 87086; 96361; 96372; 96374; 96375; 99284; 99285; J1200; J1885; J2405; J3030; Q9967

== ENCOUNTER 2023-12-03 14:02 | Outpatient (AMB) | payer OTHER, SELFPAY ==
[2023-12-03 14:07] VITALS: BP 144/82; PULSE 111; TEMP 36.8; O2SAT 99; BMI 69.8
--- NOTE | 2023-12-03 14:07 | AM.OFFWIN_ITS ---
Intake Vital Signs 12/03/23 14:07 Height 5 ft 6 in Weight 432 lb 8 oz BMI 69.8 BP 144/82 H Blood Pressure Location Lt brachial Position Sitting Pulse 111 H Pulse Source Pulse Oximeter Temp 98.3 F Temp Source Oral Pulse Oximetry (%) 99 Oxygen Delivery Method Room Air Intake Visit Reasons: EP-sob, cough and chest thightness Intake Note: Pt presents to the office today for c/o sob, cough, and sinus pressure that started 3 days ago. She states she was seen by her PCP on 11/24/23 and was given a steroid and antibiotic due to a upper respiratory infection but states it is coming back now. Patient Tobacco Use Status: Never used Tobacco Allergies penicillin G Allergy (Mild, Verified 12/03/23 14:11) Hives cinnamon Allergy (Verified 12/03/23 14:11) Unknown feathers Allergy (Verified 12/03/23 14:11) Unknown latex Allergy (Verified 12/03/23 14:11) Unknown levofloxacin [From Levaquin] Allergy (Verified 12/03/23 14:11) Hives shellfish derived Allergy (Verified 12/03/23 14:11) Unknown HPI HPI Comments History of Present Illness Details 53 y/o female patient who presents to [facility] walk in clinic with c/o cough, SOB, wheezing and chest tightness for few days. She was recently treated for Pneumonia in the beginning of November with Azithromycin and Prednisone. [facility] Medical History TANYA on CPAP Esophageal foreign body History of COVID-19 Hiatal hernia GERD (gastroesophageal reflux disease) Seasonal allergies Surgical History H/O repair of right rotator cuff Hx of tympanostomy tubes H/O esophagogastroduodenoscopy Social History Patient Tobacco Use Status: Never used Tobacco Review of Systems Const All systems reviewed & are unremarkable except as noted in HPI and below Physical Exam Vital Signs: Last Vital Signs Temp 98.3 F 12/03/23 14:07 Pulse 111 H 12/03/23 14:07 BP 144/82 H 12/03/23 14:07 Pulse Ox 99 12/03/23 14:07 Oxygen Delivery Method Room Air 12/03/23 14:07 BMI result Body Mass Index 69.8 Const General: cooperative and no acute distress Nutritional Appearance: obese morbidly obese Orientation/consciousness: patient oriented x3 Resp Effort & Inspection: normal respiratory effort Auscultation: no crackles, no rales, rhonchi throughout and wheezes throughout Cardio Heart sounds: S1 normal heart sound present and S2 normal heart sound present Skin General skin exam: no rashes or lesions noted Neuro General: patient oriented x3, gait normal and moves all extremities Psych Speech and movement: Normal speech and movement present Assessment & Plan Assessment & Plan (1) Wheezing on auscultation: Code(s): R06.2 - Wheezing Plan: Ordered chest Xray Ordered Abx ordered Prednisone (2) Cough in adult: Code(s): R05.9 - Cough, unspecified Plan: Ordered chest Xray Ordered Abx ordered Prednisone Orders: Orders XR chest 2V Today R05.9 - Cough, unspecified, R06.2 - Wheezing Medications: New prednisone 20 mg PO DAILY 10 tabs 0RF R05.9 - Cough, unspecified, R06.2 - Wheezing doxycycline hyclate 100 mg PO BID 20 caps 0RF 10 days R05.9 - Cough, unspecified, R06.2 - Wheezing lefamulin 600 mg PO Q12H 10 tabs 0RF 5 days R05.9 - Cough, unspecified, R06.2 - Wheezing Coding Level of Care Code Est Pt Level 4 (05526) Diagnoses Wheezing on auscultation R06.2 Cough in adult R05.9 Time Spent (min) 20
== END 2023-12-03 15:11 | disposition home or self-care (01) ==
PROVIDERS: Visit Provider Nurse Practitioner Family
DX: R06.2 Wheezing (principal); R05.9 Cough, unspecified
CPT/HCPCS: 99214

== ENCOUNTER 2023-12-03 14:42 | Outpatient (REF) | payer OTHER, SELFPAY ==
--- NOTE | ~2023-12-03 | XR_ITS ---
EXAMINATION: XR CHEST CLINICAL INFORMATION: Wheezing COMPARISON: None available. TECHNIQUE: 2 views of the chest were obtained. FINDINGS: No significant abnormality is noted involving the heart, lungs, mediastinum, bony thorax or soft tissues. XR/XR chest 2V IMPRESSION: Unremarkable examination. Electronically signed by: Danie Laurent MD 12/03/2023 04:33 PM EDT RP
== END 2023-12-03 14:43 | disposition home or self-care (01) ==
LOC: HO.HMGCX 14:42
PROVIDERS: PCP Internal Medicine; Visit Provider Nurse Practitioner Family
DX: R06.2 Wheezing (principal); R05.9 Cough, unspecified
CPT/HCPCS: 71046

== ENCOUNTER 2024-06-05 12:51 | Outpatient (AMB) | payer OTHER, SELFPAY ==
--- NOTE | 2024-06-05 12:59 | AM.OFFWIN_ITS ---
Intake Vital Signs 06/05/24 13:02 Weight 420 lb BP 130/84 Blood Pressure Location Lt brachial Position Sitting Pulse 96 Pulse Source Pulse Oximeter Temp 98.7 F Temp Source Oral Pulse Oximetry (%) 98 Oxygen Delivery Method Room Air Intake Visit Reasons: EP-SOB, home testing positive covid Intake Note: Patient here for chills, SOB, loss of voice and bilat ear pain. She did take a covid test which was positive. Patient Tobacco Use Status: Never used Tobacco Allergies penicillin G Allergy (Mild, Verified 06/05/24 13:01) Hives cinnamon Allergy (Verified 06/05/24 13:01) Unknown feathers Allergy (Verified 06/05/24 13:) Unknown latex Allergy (Verified 06/05/24 13:) Unknown levofloxacin [From Levaquin] Allergy (Verified 06/05/24 13:) Hives shellfish derived Allergy (Verified 06/05/24 13:) Unknown Do you need a note to return to daycare/school/sports/work: No HPI HPI Comments History of Present Illness Details History - The patient is a 53-year-old female pr esenting with fever, shortness of breath, and cough. - Symptoms commenced suddenly the previo us morning, including chills and a sensation of heaviness in the chest. - Positivity for COVID-19 has been indic ated through two rapid tests, despite the initial test's expiration. - Shortness of breath has intensified, a ccompanied by a productive cough with red-speckled sputum. - A fever recorded at 101?F was alleviat ed with Tylenol. - There is no pertinent history of smoki ng, asthma, or COPD. - The patient's health history includes episodes treated as upper respiratory infections, for which inhalers were prescribed. - She expresses compliance with receivin g a flu vaccine this year - Shortness of breath is exacerbated by physical activity and less prominent while at rest. Physical Exam General: Cooperative, healthy appearing, comfortable and no acute distress Orientation/consciousness: Patient oriented x3 Limitations: No limitations Head: Normal to inspection Ears: Hearing grossly normal bilaterally, external ears normal and TM's normal bilaterally Nose: Normal external nose present, Normal nares present and No nasal discharge present Face and sinus: Normal facial exam and Yes sinuses nontender Mouth: Normal oral and palatal mucosa present and moist mucous membranes Throat: Yes tonsils normal, Yes uvula midline. Posterior oropharynx erythema Eyes: Appearance normal, both eyes and all related structures Neck: Normal visual inspection Respiratory: Clear to auscultation bilaterally. Normal respiratory effort, able to speak in complete sentences, Actively coughing, no respiratory distress, not tachypneic, no tripod positioning and no use of accessory muscles Cardiovascular: Regular rate and rhythm. Normal S1 and S2 Skin: No rashes or lesions noted Neuro: Patient oriented x3 Extremities: Normal to inspection and Yes no clubbing, cyanosis or edema PFSH Medical History TANYA on CPAP Esophageal foreign body History of COVID-19 Hiatal hernia GERD (gastroesophageal reflux disease) Seasonal allergies Surgical History H/O repair of right rotator cuff Hx of tympanostomy tubes H/O esophagogastroduodenoscopy Social History Patient Tobacco Use Status: Never used Tobacco Review of Systems Const All systems reviewed & are unremarkable except as noted in HPI and below Physical Exam Vital Signs: Last Vital Signs Temp 98.7 F 06/05/24 13:02 Pulse 96 06/05/24 13:02 BP 130/84 06/05/24 13:02 Pulse Ox 98 06/05/24 13:02 Oxygen Delivery Method Room Air 06/05/24 13:02 Assessment & Plan Assessment & Plan (1) URI, acute: Code(s): J06.9 - Acute upper respiratory infection, unspecified Plan: Current management focuses on the symptomatic relief of fever and shortness of breath ascribed to a verified COVID-19 infection. Tylenol remains the selected antipyretic, given its effectiveness in reducing fever. The patient's shortness of breath is managed with inhaler use, while nebulizer treatment is considered secondary, given the clear lung sounds. The risk of corticosteroids escalating pneumonic infection leads us to prioritize other treatments. Her chest discomfort will be further examined through chest X-ray imaging. Sinus-related symptoms prompted recommendations for saline nasal sprays and Flonase to address congestion and fluid presence in the ear. Compliance with prescribed treatment and follow-up on diagnostic results is important for managing this condition. Patient was informed and verbally consented to the use of an ambient scribe for clinic note documentation during this visit Orders: Orders SARS-CoV2/FLU/RSV Today R09.89 - Other specified symptoms and signs involving the circulatory and respiratory systems XR chest 2V Today R05.9 - Cough, unspecified Medications: New fluticasone propionate 50 mcg/actuation administer into each nostril 1 spray intranasal Q12H 16 grams 0RF Coding Level of Care Code New Pt Level 4 (14043) Diagnoses URI, acute J06.9
[2024-06-05 13:02] VITALS: BP 130/84; PULSE 96; TEMP 37.1; O2SAT 98
--- OUTSIDE RECORDS SUMMARY | 2024-06-05 15:02 | XMS_ITS | Patient Health Record ---
Author Organization [facility] Address [address] [place] [address] Care Team Providers Care Multi Share Program Coordinator Name Role Phone Cristina HENRY, Keith Primary Care Provider Luis Antonio Mae Jr Unavailable ALLERGIES Allergen (clinical drug ingredient) Drug/Non Drug Allergy documented on EMR Reaction Allergy Type Onset Date Status Penicillin Unknown Drug Allergy Active Shellfish (FN) Shellfish-derived Products Unknown Drug Allergy Active Latex Latex Unknown Allergy Active Cinnamon Cinnamon Unknown Allergy Active Levaquin Unknown Drug Allergy Active Feathers feathers (uncoded) Unknown Allergy A ctive REASON FOR REFERRAL No Information MEDICATIONS Medication SIG (Take, Route, Frequency, Duration) Notes Start Date End Date Status Multivitamin Active MiraLax (colon prep) 17 GM/SCOOP mixed with Gatorade or Crystal Light Orally begin at 5:00 p.m. the day before the procedure for 1 day 08/06/2022 Active IMMUNIZATIONS Vaccine Route Administration Date Status Comme nts Influenza Unknown 12/04/2021 Administered SOCIAL HISTORY Tobacco Use: Social History Observation Description Date Details (start date - stop date) Never Smoker NA - NA Sex Assigned At : Social History Observation Description Sex Assigned At Unknown Tobacco Use/Smoking Question Answer Notes Patient is a nonsmoker Alcohol Screen Question Answer Notes Did you have a drink contain ing alcohol in the past year? Yes How often did you have a dri nk containing alcohol in the past year? Never (0 point) How many drinks did you have on a typical day when you were drinking in the past year? 1 or 2 drinks (0 point) Points 0 Interpretation Negative PROBLEMS Problem Type ICD Code Onset Dates Problem Status W/U Status Risk SNOMED Code Notes Problem Colon cancer screening (Z12.11) Active confirmed [id number] PLAN OF TREATMENT Future Test Test Name Order Date COLONOSCOPY 08/06/2022 Insurance Providers Payer Name Payer Address Payer Phone Subscriber Number Group Number Insured Name Patient Relationship to Insured Coverage Start Date Coverage End Date [facility] [address] [place] [phone] [id number] WESLEY KOHLI Self - patient is the insured MEDICAL (GENERAL) HISTORY Medical History History ICD Code seasonal allergies Gastroesophageal reflux dise ase, EGD 12/19, small hiatal hernia and nonobstructive Schatzki ring. No H. pylori or Echeverria's esophagus. Sleep study scheduled 08/27/22 Covid 19 infection Esophageal foreign body requiring endosc opic removal 2021 Surgical History Surgery Date(Month/Year) tympanostomy tubes 1976 Right rotator cuff repair 2017
== END 2024-06-05 14:08 | disposition home or self-care (01) ==
PROVIDERS: PCP Internal Medicine; Visit Provider Physician Assistant
DX: J06.9 Acute upper respiratory infection, unspecified (principal)

== ENCOUNTER 2024-06-05 12:51 | Outpatient (REF) | payer OTHER, SELFPAY ==
[2024-06-05 17:29] LABS: Influenza A PCR NEGATIVE (Negative); Influenza B PCR NEGATIVE (Negative); Resp Syncy Virus RNA Qual PCR NEGATIVE (Negative); SARS COV2 PCR INHOUSE POSITIVE (Negative)
== END 2024-06-05 12:52 | disposition home or self-care (01) ==
LOC: HO.LAB 12:51
PROVIDERS: PCP Internal Medicine; Visit Provider Physician Assistant
DX: J06.9 Acute upper respiratory infection, unspecified (principal); R09.89 Other specified symptoms and signs involving the circulatory and respiratory systems
CPT/HCPCS: 0241U

== ENCOUNTER 2024-06-05 13:55 | Outpatient (REF) | payer OTHER, SELFPAY ==
--- NOTE | ~2024-06-05 | XR_ITS ---
CLINICAL HISTORY: R05.9 - Cough, unspecified 2 view chest x-ray. Comparison: None Findings: Heart size normal No acute fracture. Impression: The lungs are clear. This document has been electronically signed by: Jose Sanches MD on 06/05/2024 17:14:12
== END 2024-06-05 13:56 | disposition home or self-care (01) ==
LOC: HO.HMGCX 13:55
PROVIDERS: PCP Internal Medicine; Visit Provider Physician Assistant
DX: R05.9 Cough, unspecified (principal)
CPT/HCPCS: 71046

== ENCOUNTER → 2024-06-05 13:58 | Outpatient (BNV) | payer OTHER, SELFPAY | PROVIDERS: PCP Internal Medicine; Visit Provider Radiology Diagnostic Radiology | DX: R05.9 Cough, unspecified (principal) | CPT/HCPCS: 71046 ==

== ENCOUNTER 2025-02-28 11:29 | Outpatient (REF) | payer OTHER, SELFPAY ==
[2025-02-28 15:25] LABS: Resp Syncy Virus RNA Qual PCR NEGATIVE (Negative); SARS COV2 PCR INHOUSE NEGATIVE (Negative)
== END 2025-02-28 11:30 | disposition home or self-care (01) ==
LOC: HO.LAB 11:29
PROVIDERS: Physician Assistant Medical; PCP Internal Medicine
DX: R05.1 Acute cough (principal); R09.89 Other specified symptoms and signs involving the circulatory and respiratory systems; R07.89 Other chest pain
CPT/HCPCS: 87637; 94640

== ENCOUNTER 2025-02-28 11:29 | Outpatient (AMB) | payer OTHER, SELFPAY ==
--- OUTSIDE RECORDS SUMMARY | 2025-02-26 13:30 | XMS_ITS | Encounter Summary ---
Author Organization [facility] Address [address] [place] [address] Phone Care Team Providers Care Business Solutions Architect Name Role Phone Keith Evans MD Primary Care Provider [phone] Reason for Visit * Reason Comments Sick Visit Back Pain Lower right back myriam n, started about a week ago. Twisted wrong started to feel better then gotten worst. Encounter Details Date Type Department Care Team (Late st Contact Info) Description 02/26/2025 1:30 PM EST Office Visit [facility] [address] [place], [place] [id number] Keith Evans MD [address] [place] [address] [email or web address] Mid back pain (Primary Dx) Social History Tobacco Use Types Packs/Day Years Used Date Smoking Tobacco: Never Smokeless Tobacco: Never Alcohol Use Standard Drinks/Week Comments Not Currently 0 (1 standard drink = 0.6 oz pur e alcohol) Child or Family Care Answer Date Record ed Do you have problems with on e of the following making it difficult for you to work, study, or receive health care? No 03/31/2024 Education Answer Date Recorded Are you interested in help w ith more adult education (for example, completing high school, GED, job training, learning the Lithuanian language, technical skills, or developing parenting skills)? No 03/31/2024 Are you concerned about learning? Not on file 03/31/2024 No 03/31/2024 Yes 03/31/2024 Food Answer Date Recorded Within the past 6 months we worried whether our food would run out before we got money to buy more. Never True 03/31/2024 Within the past 6 months the food we bought just didn't last and we didn't have enough money to get more. Never True Residential Stability Answer Date Recor ded What is your housing situation today? I have kiko mathis 03/31/2024 How many times have you move d in the past 12 months? Zero (I did not move) 03/31/2024 Paying for Meds Answer Date Recorded Do you have trouble paying for medicines? No 03/31/2024 Paying Utility Bills Answer Date Record ed Do you have trouble paying your heating or elect ricity bill? No 03/31/2024 Transportation Answer Date Recorded Has the lack of transportati on kept you from medical appointments or from getting medications? No 03/31/2024 Unemployment Answer Date Recorded Are you currently unemployed or working on a part-time or temporary basis, and looking for work? I choose not to answer 04/02/2022 Digital Access Answer Date Recorded No 03/31/2024 Yes 03/31/2024 Do you have reliable internet access at home? Ye s 03/31/2024 Do you have a device (e.g., phone, tablet, computer) with a working camera? Yes 03/31/2024 Intimate Partner Violence Answer Date R ecorded Denied Basic Needs Not on file 03/31/2024 In the past 12 months have y ou been in a relationship with a person who hurts, threatens, or tries to control you? No 03/31/2024 Worried food would run out Not on file 03/31 In the past 12 months have y ou been in a relationship with a person who hurts, threatens, or tries to control you? No 03/31/2024 Comments No Sex and Gender Information Value Date Recorded Sex Assigned at Female 05/15/2020 4:42 PM EST Legal Sex Female 9:07 AM EDT Gender Identity Female 05/15/2020 4:42 PM EST Sexual Orientation Straight 04/02/2022 7: 48 AM EST documented as of this encounter Last Filed Vital Signs Vital Sign Reading Time Taken Comments Blood Pressure 132/88 02/26/2025 1:12 PM EST Pulse 68 02/26/2025 1:12 PM EST Temperature 36.6 C (97.8 F) 02/26/2025 1:12 PM EST Respiratory Rate 18 02/26/2025 1:12 PM EST Oxygen Saturation 98% 02/26/2025 1:12 PM EST Inhaled Oxygen Concentration - - Weight 204.9 kg (451 lb 12.8 oz) 02/26/2025 1:12 PM EST Height 164 cm (5' 4.57 ) 02/26/2025 1:12 PM EST Body Mass Index 76.2 02/26/2025 1:12 PM EST documented in this encounter Progress Notes * Keith Evans MD - 02/26/2025 1:30 PM EST Subjective: Patient ID: Vielka Heck is a 54 y.o. female. This patient comes in with her after she was cleaning the house and then moved a certain way and twisted her back right mid section. That was approximately Wednesday last week. It seemed to get better but then Wednesday she was picking up some bags of milk that were somewhat heavy and then hadshooting pain again mid back but not radiating but localized. At times with any type of motion she will have the right sided pain to the point of nausea. Sometimes when she is in bed moving can causea jolt of pain. Could be then sometimes painful to breathe. Current Outpatient Medications Ordered in Epic: acetaminophen (TYLENOL) 500 mg capsule, Take 1,500 mg by mouth. albuterol (PROAIR HFA) 90 mcg/actuation inhaler, Inhale 2 puffs into the lungs every 6 (six) hours as needed for wheezing. LORazepam (ATIVAN) 0.5 MG tablet, Take 1 tablet (0.5 mg total) by mouth every 8 (eight) hours as needed for anxiety. multivit with minerals/lutein (MULTIVITAMIN 50 PLUS ORAL), In winter topiramate (TOPAMAX) 25 MG capsule, Take 50 mg by mouth nightly at bedtime. cyclobenzaprine (FLEXERIL) 10 MG tablet, Take 1 po qhs for 10 days and otherwise bid prn for mid back spasms diclofenac sodium (VOLTAREN) 75 MG EC tablet, Take 1 tablet (75 mg total) by mouth 2 (two) times a day. Review of Systems Objective: Physical Exam Skin: General: Skin is warm and dry. Neurological: General: No focal deficit present. Gait: Gait normal. Blood pressure 132/88, pulse 68, temperature 36.6 ??C (97.8 ??F), temperature source Temporal, resp. rate 18, height 164 cm (5' 4.57 ), weight (!) 204.9 kg (451 lb 12.8 oz), SpO2 98%, not currently . Assessment/Plan: Problem List Items Addressed This Visit Mid back pain - Primary Right sided mid back pain, acute with exacerbation is brought on by motions. Heat 20 minutes on 10minutes off, muscle relaxation with cyclobenzaprine and analgesic diclofenac 75 mg p.o. twice daily. Relevant Medications diclofenac sodium (VOLTAREN) 75 MG EC tablet cyclobenzaprine (FLEXERIL) 10 MG tablet documented in this encounter Miscellaneous Notes * Assessment & Plan Note - Keith Evans MD - 02/26/2025 2:10 PM ESTAssociated Problem(s): Mid back pain Right sided mid back pain, acute with exacerbation is brought on by motions. Heat 20 minutes on 10 minutes off, muscle relaxation with cyclobenzaprine and analgesic diclofenac 75 mg p.o. twice daily. documented in this encounter Plan of Treatment Upcoming Encounters Date Type Department Care Team (Late st Contact Info) Description 03/26/2025 8:00 AM EST Appointment [address] [address] Erick Urena PA-C [address] [place] [phone] [email or web address] 03/26/2025 9:00 AM EST Appointment [address] [address] Erick Urena PA-C [address] [place] [address] 03/26/2025 10:00 AM EST Appointment Non-Invasive Cardiology [address] [place] [address] Erick Urena PA-C [address] [place] [address] 03/26/2025 11:00 AM EST Appointment [facility] Medicine [address] [address] Erick Urena PA-C [address] [place] [address] 04/03/2025 10:20 AM EST Office Visit [facility] [address] [place] [address] Erick Urena PA-C [address] [place] [phone] 07/17/2025 12:45 PM EDT Office Visit [facility] [address] [place] [address] 3rd Floor, [address] [place] [address] Breezy Ellis DO [address] [facility] [address] [place] [phone] documented as of this encounter Visit Diagnoses Diagnosis Mid back pain- Primary documented in this encounter Additional Health Concerns Assessment Noted Time PHQ-9 Depression Total Score: 9 03/31/20 24 11:36 PM EST PHQ-2 Depression Total Score: 4 03/31/20 24 11:36 PM EST documented as of this encounter Care Teams Business Solutions Architect Relationship Specialty Start Date End Date Keith Evans MD [address] [place] [phone] [email or web address] PCP - General Internal Medicine 05/01/20 documented as of this encounter Additional Source Comments The information contained in this document represents components of the legal health record. It is not the complete legal health record.[facility]
[2025-02-28 11:37] VITALS: BP 106/88; PULSE 78; TEMP 36.9; O2SAT 97; BMI 72.3
--- NOTE | 2025-02-28 11:37 | AM.OFFWIN_ITS ---
Intake Vital Signs 02/28/25 11:37 Height 5 ft 6 in Weight 448 lb BMI 72.3 BP 106/88 Blood Pressure Location Lt brachial Position Sitting Pulse 78 Pulse Source Pulse Oximeter Temp 98.5 F Temp Source Oral Pulse Oximetry (%) 97 Oxygen Delivery Method Room Air Intake Visit Reasons: EP Sore throat, cough, SOB Intake Note: pt presents c/o feeling like something is sitting on her chest with worsening SOB, chest congestion with yellow productive coughing and a sore throat x3 days. Heart monitor in place, it is due to be removed today. Pt reports h/o of long Covid during pandemic and that any colds tend to become URI's. Patient Tobacco Use Status: Never used Tobacco Allergies penicillin G Allergy (Mild, Verified 02/28/25 11:46) Hives cinnamon Allergy (Verified 02/28/25 11:46) Unknown feathers Allergy (Verified 02/28/25 11:46) Unknown latex Allergy (Verified 02/28/25 11:46) Unknown levofloxacin (From Levaquin) Allergy (Verified 02/28/25 11:46) Hives shellfish derived Allergy (Verified 02/28/25 11:46) Unknown Do you need a note to return to daycare/school/sports/work: No HPI HPI Comments History of Present Illness Details History - The patient is a 54 year old femalel p resenting for evaluation of respiratory symptoms. - Symptoms began approximately four days ago with a cough. - The patient began producing phlegm yes terday, which has since turned brownish- yellow. - Associated symptoms include a dry thro at, loss of voice, chills without fever, and a sensation of pressure on the lungs. - The patient reports a history of simil ar episodes that typically develop into an upper respiratory infection, which have previously been treated with antibiotics, an inhaler, and prednisone. - The patient uses an albuterol inhaler for rescue but requires a refill. - The patient also uses a maintenance po wder inhaler, identified as Advair. - The patient expressed concern that the condition could progress to pneumonia if not treated. - She is not a smoker and has no sick co ntacts. - She denies fever or chills. - She denies abd pain, n/v/d. Physical Exam General: Cooperative, healthy appearing, comfortable and no acute distress Orientation/consciousness: Patient oriented x3 Limitations: No limitations Head: Normal to inspection Ears: Hearing grossly normal bilaterally, external ears normal and TM's normal bilaterally Nose: Normal external nose present, normal nares present, and no nasal discharge present. Face and sinus: Sinuses nontender to palpation. Mouth: Normal oral and palatal mucosa present and moist mucous membranes noted. Throat: Tonsils normal. Uvula is midline. Posterior oropharynx with erythema and no exudates. Eyes: Appearance normal, both eyes and all related structures Neck: Normal visual inspection, full ROM. No lymphadenopathy noted. Respiratory: Wheezes noted throughout. No rales or rhonchi noted. Normal respir atory effort, able to speak in complete sentences. No respiratory distress, not tachypneic, no tripod positioning and no use of accessory muscles. Cardiovascular: Regular rate and rhythm. Normal S1 and S2. No m/r/g noted. Skin: No rashes or lesions noted Patient was informed and verbally consented to the use of an ambient scribe for clinic note documentation during this visit [facility] Medical History TANYA on CPAP Esophageal foreign body History of COVID-19 Hiatal hernia GERD (gastroesophageal reflux disease) Seasonal allergies Surgical History H/O repair of right rotator cuff Hx of tympanostomy tubes H/O esophagogastroduodenoscopy Social History Patient Tobacco Use Status: Never used Tobacco Review of Systems Const All systems reviewed & are unremarkable except as noted in HPI and below Physical Exam Vital Signs: Last Vital Signs Temp 98.5 F 02/28/25 11:37 Pulse 78 02/28/25 11:37 BP 106/88 02/28/25 11:37 Pulse Ox 97 02/28/25 11:37 Oxygen Delivery Method Room Air 02/28/25 11:37 BMI result Body Mass Index 72.3 Office Procedures Nebulizer Treatment Nebulizer Treatment 12045-Fcbdkodni/MDI RX initial, or Nebulizer Subsequent Treatment Office Meds ipratropium 0.5 mg-albuterol 3 mg (2.5 mg base)/3 mL nebulization soln Performing Provider: Namrata Armstrong PA-C Performing Location: [facility] Administered by: Namrata Armstrong PA-C on 02/28/25 12:18 Dose Route Admin Location Dispensed Lot Number Expiration Date NDC Program Director/Traffic Director 3 mL inhalation 3 mL 25H11/02/26 04969-984-41 [employer] Assessment & Plan Assessment & Plan (1) Cough: Code(s): R05.9 - Cough, unspecified Qualifiers: Cough type: acute Qualified Code(s): R05.1 - Acute cough Plan Most likely Acute Bronchitis vs URI asthma exacerbation vs covid vs flu vs RSV plan - A COVID-19/RSV test was performed to rule out these etiologies. - Prescriptions for an Azithromycin Z-Nino, Tessalon Perles for cough, and a 5- day course of prednisone were sent to the pharmacy. - An in-office nebulizer treatment will be administered to help with chest pressure. - The patient has a history of using a maintenance inhaler (Advair) and a rescue inhaler (Albuterol), indicating underlying asthma. - A prescription for an Albuterol inhaler was sent to the pharmacy. - The patient was advised to continue the Advair twice daily and use the Albuterol as needed. - Advised the ER if she develops a fever, CP, SOB, etc - follow up with PCP Orders: Orders SARS-CoV2/FLU/RSV Today R09.89 - Other specified symptoms and signs involving the circulatory and respiratory systems AMB Nebulizer Treatment Today R05.9 - Cough, unspecified Medications: New azithromycin For 250 mg dose pack: take 500 mg today (day 1), then 250 mg for 4 days (days 2-5) PO 6 tabs 0RF prednisone 40 mg (2 x 20 mg) PO DAILY 10 tabs 0RF 5 days benzonatate 100 mg PO bid-tid PRN 21 caps 0RF Cough 7 days Coding Level of Care Code Est Pt Level 4 (41357) Diagnoses Acute cough R05.1 Cough type: acute CPT Codes Nebulizer Treatment - Nebulizer Treatment, initial or subsequent: 16037- Nebulizer/MDI RX initial, or Nebulizer Subsequent Treatment ([id number])
--- OUTSIDE RECORDS SUMMARY | 2025-02-28 14:28 | XMS_ITS | Clinical Summary ---
Author Organization [facility] Address [address] [facility] [address] [place] [id number] Phone Care Team Providers Care Weed Burner Name Role Phone Keith Evans MD Primary Care Provider [phone] Allergies Active Allergy Reactions Criticality Noted Date Comments Cinnamon Anaphylaxis High 11/04/2018 Latex Rash with Skin Desquamation 11/04/2018 Levofloxacin Rash Low 11/04/2018 Penicillins Anaphylaxis High 11/04/2018 Age mid-20s Saccharomyces Cerevisiae 06/18/2022 pt allergic to yeast Shellfish Containing Products Anaphylaxis High 11/04/2018 Medications multivit with minerals/lutein (MULTIVITAMIN 50 PLUS ORAL) In winter Active albuterol (PROAIR HFA) 90 mcg/actuation inhalerIndicati ons:COVID-19 virus infection Inhale 2 puffs into the lungs every 6 (six) hours as needed for wheezing. 8 g 1 3 Active topiramate (TOPAMAX) 25 MG capsule Take 50 mg by mouth nightly at bedtime. Active LORazepam (ATIVAN) 0.5 MG tablet Take 1 tablet (0.5 mg total) by mouth every 8 (eight) hours as needed for anxiety. 21 tablet 5 Active acetaminophen (TYLENOL) 500 mg capsule Take 1,500 mg by mouth. Active diclofenac sodium (VOLTAREN) 75 MG EC tabletIndicatio ns:Mid back pain Take 1 tablet (75 mg total) by mouth 2 (two) times a day. 30 tablet 5 Active cyclobenzaprine (FLEXERIL) 10 MG tabletIndicatio ns:Mid back pain Take 1 po qhs for 10 days and otherwise bid prn for mid back spasms 40 tablet 1 5 Active Active Problems Problem Noted Date Diagnosed Date Mid back pain 02/26/2025 Assessment & Plan (02/26/2025 2:10 PM EST): Right sided mid back pain, acute with exacerbation is brought on by motions. Heat 20 minutes on 10 minutes off, muscle relaxation with cyclobenzaprine and analgesic diclofenac 75 mg p.o. twice daily. Flu vaccine need 01/04/2025 Anxiety state 01/04/2025 Assessment & Plan (02/15/2025 4:55 PM EST): Patient mentions overall her anxiety has improved. She mentions that within the last 2 weeks she has not required the use of Ativan. She mentions that overall she feels as though is that her mood is good as the tests have been coming back okay with the exception of her stress test which we did discuss and she is to undergo further testing with a nuclear med stress test on 03/26. She also has an appointment scheduled with cardiology in July 2025. Overall she is smiling and happy. She seems a lot less anxious. I advised her to continue using lorazepam 0.5 mg every 8 hours as needed. Assessment & Plan (01/04/2025 2:18 PM EDT): Patient was recently admitted for chest pain and during that time she underwent EKG as well as further imaging such as head CT CTA chest/abdomen and pelvis all of which were noted to be negative. She was given a full dose aspirin and evaluated by cardiology who felt that her symptoms were not related to cardiac disease however related to potential anxiety. Upon further discussion her night talked as she has been experiencing intermittent episodes of chest pain which I did explain could mimic a panic attack. She has been having more increased stress and has a lot of stressors in general. We trialed a course of lorazepam which has been shown to improve her symptoms. I do feel as though is that her chest pain is related to a panic attack. We talked about long-acting medication such as SSRIs however unfortunately patient has had adverse reactions to these medications therefore would like to refrain from those. She had been on Vraylar in the past last dose was 9 months ago and was only on it 5 days a week secondary to brain fog. I did explain I do not prescribe that medication and therefore she would have had to be seen by psychiatrist. Where the lorazepam 0.5 mg is working although she does become extremely groggy we talked about cutting this in half and making it to 0.25 mg which she is agreeable to. I have sent in another prescription to the pharmacy, [facility]. Of note she is scheduled at the end of the month for stress test and followed by echocardiogram and a 30-day Holter is currently pending. We will follow-up in 6 weeks Chest pain 12/28/2024 Assessment & Plan (02/15/2025 4:57 PM EST): Patient has not had any further chest pain and mentions that her anxiety is well-controlled. She does have lorazepam 0.5 mg every 8 hours as needed. Of note she had undergone an echocardiogram which showed an EF of 60 to 65% with mild mitral and tricuspid regurg. She has some dilatation of the RV. Her stress test showed some abnormalities in the ST-T waves therefore they recommended that she undergo a nuclear medicine scan which is booked for 03/26/2026. We discussed if this is noted to be positive then the next step would be a diagnostic cardiac cath. If it was negative then the next step would be for her to see [facility] cardiology which she has an appointment in July 2025. Assessment & Plan (01/04/2025 2:15 PM EDT): Patient was seen for a TCM at the end of December where she had been hospitalized for chest pain. She had continued to have episodes of chest pain and therefore a stress test is booked at the end of January followed by an echocardiogram and a 30-day Holter monitor is currently pending. We will await these findings. Assessment & Plan (12/28/2024 7:13 PM EDT): Patient recently admitted to [facility] for substernal chest pain with radiation to the back shoulder neck with associated blurred vision nausea and lightheadedness. This started on 12/21 and was admitted and discharged on 12/23/2024. Patient underwent a CTA chest/abdomen and head which were noted to be negative. EKG was normal sinus rhythm heart rate 76. Troponins were noted to be flat. However since her admission patient continues to have episodes of chest pressure ranging from 15 to 25 minutes each time. Of note patient does carry history of anxiety and depression however is not currently on any medications for this. EKG obtained in the office which revealed sinus rhythm heart rate [address]-T wave abnormalities noted. Given her symptoms and recurrence of these my differential diagnosis includes cardiac disease versus cardiac arrhythmia versus anxiety versus iron deficiency. - I will order a bubble study echocardiogram, 30-day Holter monitor -I will order a cardiac stress test -I will start lorazepam 0.5 mg p.o. every 8 hours dispense 10 [employer] verified -I have asked the patient to reach out to him I will to touch base to see if the lorazepam had helped her symptoms. -Patient was advised that if she develops worsening chest pain she is to call 911 and go immediately to the ER - Follow-up 1 week Malaise and fatigue 12/28/2024 Assessment & Plan (12/28/2024 7:09 PM EDT): Patient has been experiencing an increase in fatigue which worsened since her most recent admission. Patient blamed it on not being able to eat for a few days secondary to the restrictions there. However according to her this has been ongoing and progressively gotten worse. She denies any rashes or tick bites. We will obtain iron studies and a Lyme titer. If continued fatigue we may want to obtain TSH Other headache syndrome 09/16/2023 Assessment & Plan (09/16/2023 8:26 PM EDT): ? Right sided occipital neuralgia given her physical exam and symptoms. She was recently in the er and received Imitrex which made it worse then given Toradol and benadryl with IVF with some improvement. -start flexeril 5mg tid prn -ibuprofen 800mg tid with food -neurology consult - rozina -patient advised to go to the ER if she develops worsening headache, n/v, changes in vision., weakness etc. Routine general medical exam ination at a health care facility 06/16/2019 Assessment & Plan (04/07/2024 2:24 PM EST): Exam positive for obesity and lower extremity edema in the setting of obesity, otherwise negative. Will set up for 3-month follow-up after she is demonstrated weight watchers and then start her perhaps on Zepbound or Ozempic. Lets obtain labs today including a lipid profile Chem-12 and a CBC. Mammogram ordered at [facility]. Assessment & Plan (04/06/2023 2:06 PM EST): Overall she is doing okay, she is stagnating on weight loss but has been trying Valeant lately to lose weight. She is in agreement to go to [facility] weight management. Her previous labs from 2021 showing excellent hemoglobin A1c, lipid profile and normal electrolytes kidney function blood counts. She does tend to get constipated with her periods so when this time occurs she should take some MiraLAX 10 g daily. Assessment & Plan (04/02/2022 10:23 AM EST): We are quite pleased with the patient's persistence her lifestyle change that has resulted in marked weight loss. We encouraged her to continue with this lifestyle change as it appears to be working well for her. I talked to her about GLP-1 agonists but I told her to hold off and then see if she is at an impasse and then we can consider Wemaira or Saxenda for the new GLP-1 agonist. Exam otherwise with no pathology other than the blood pressure being elevated and weight. Would encourage her to check blood pressure at home. Assessment & Plan (06/16/2019 1:49 PM EDT): Vaccinations are up-to-date, patient will be prescribed some famotidine for occasional heartburn. Obesity counseling please see above. We note that her blood pressure is much better controlled but we would like her to stay on the atenolol which was started, heart rate better, blood pressure good on it and was drastically improved from 09 May and 01 May. Low-sodium diet recommended, calorie restricted diet recommended. Today we will assess lipid profile electrolytes kidney function blood sugar spotcheck, lipid profile, thyroid function especially with family history of hypothyroidism. 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 Mike at [facility] women's health. Stress reaction 05/09/2019 Assessment & Plan (05/09/2019 4:53 PM EST): Instead of calling this hypertension we will note that the patient is under great stress as her daughters had just due to complications of a rare form of leukemia that was diagnosed in March. There is a lot of stress with his passing on, also her mom had recently fractured her ankle and she was having trouble with her daughter as well. All this had come together to a stress reaction that raised her blood pressure and we think that is probably what is going on. Therefore in order to keep her blood pressure down we will start her on atenolol 50 mg daily and then see her again in 30 days to see if she no longer needs the atenolol. Low-sodium diet and avoidance of Sudafed and other decongestant-containing products as well as Afrin nasal spray to be avoided. Obesity, morbid 01/17/2019 Assessment & Plan (04/07/2024 2:23 PM EST): She is affected quite severely by COVID so if she were to develop COVID again we can call in the Paxlovid as we have done so in the past. I am still advising against COVID-19 vaccines but today will give her the flu shot. Assessment & Plan (04/06/2023 2:04 PM EST): Referral to [facility] weight management. With the patient's agreement. Assessment & Plan (06/21/2020 2:05 PM EDT): 15-minute discussion regarding weight loss modalities. We gave the patient our blessing to start a keto diet that her sister had success with. We encouraged her to do the program 4 months and then take on a Mediterranean diet for a month before reverting back to keto diet. It is important she drinks plenty of water when on this diet. [place] [facility] loss program in [place] was mentioned though expense could be an obstacle. Take sugar-free Metamucil 1 tablespoon with a tall glass of water 20 minutes before dinner as a tip to decrease appetite. Follow-up in 3 months on physical exam. Assessment & Plan (06/16/2019 1:46 PM EDT): OB History No obstetric history on file. counseled the pt on eating a low calorie diet to reduce excess weight. We talked about calorie restriction, weight watchers and exercise as possible to help move weight in the right direction. Recurrent major depressive disorder, in partial remission 01/17/2019 Assessment & Plan (04/06/2023 2:04 PM EST): Appears to be in good condition on the Vraylar, patient will continue to follow with her psychiatrist and therapist. Assessment & Plan (06/21/2020 2:06 PM EDT): The patient feels that the new medicine Vraylar is working quite well which was started in April of this year. Her psychiatrist Claudette Herrera has a private practice and she was referred by her counselor to the psychiatrist. She appears to be even keeled on this medicine. Assessment & Plan (06/16/2019 1:47 PM EDT): Patient has a new prescriber for the Cymbalta but will probably start new with the provider to see what type of antidepressant would be more effective. She had lamented constant changes in her medications that left her unbalanced. She feels much better now that there was some resolution both with her mom now improving and coming out of rehab after a fractured leg and then also her daughter adjusting to the of her young . Primary insomnia 01/17/2019 Resolved Problems Problem Noted Date Diagnosed Date Resolved Date Sore throat 11/17/2023 12/28/2024 Assessment & Plan (11/17/2023 2:37 PM EDT): Sore throat with laryngitis. Patient has been using warm tea. Her oropharynx is slightly erythematous without exudate. Could be viral however given her symptoms though will order a Cepheid strep negative 2 use tea with honey and warm salt water gargles Acute cough 11/17/2023 12/28/2024 Assessment & Plan (11/17/2023 2:37 PM EDT): Given her medical history concern for bronchitis versus pneumonia. Home COVID swab today noted to be negative. Cepheid multiplex negative Zpack Prednisone 40mg po daily x 5 days Lymph node abscess 12/23/2022 Assessment & Plan (12/23/2022 2:35 PM EDT): This could be an axillary lymph node that abscess but also could be simply a lymphadenitis solitary but also a inclusion cyst that became infected. Right now it does not appear infected so antibiotics not indicated but if the tenderness increases again or there is some redness of the skin of the axilla I have instructed the patient to tell me and then we could start her on an antibiotic. Right now there is nothing to biopsy. Nothing to incise or drain. Blepharoconjunctivitis of both eyes 12/17/2020 04/06/2023 Assessment & Plan (12/17/2020 5:05 PM EDT): Although we cannot examine her eyes through the phone we can do her description come to the clinic occlusion that there is a bacterial infection of the eyelids and glands along the lashes. Therefore topical antibiotic seems indicated, erythromycin ophthalmic distribute on the inner conjunctiva of both lower eyelids and then distributed by means of blinking and do this 3 times a day. 5 days. If the patient should experience some blurriness of vision activity ointment but that will go away shortly if it persists however she should see a sulphate tester. Reactive airway disease 06/21/2020/0 05/2023 Assessment & Plan (06/21/2020 2:08 PM EDT): After the COVID-19 infection the patient had severe shortness of breath. She was grateful for the albuterol nebulizer and further the consultation with the church worker. I took 5 minutes to review the consult before I saw the patient and then I have reviewed the salient points with her. She did not have a pulmonary embolism and we feel that could be the COVID-19 infection causing a reactive persisting disease requiring the fluticasone along with salmeterol. This appears to be working well for her and she has pulmonary function studies set up and given her body habitus also set up for a sleep study to assess for TANYA. Today's exam negative for any wheezing and dyspnea with moderate exertion which she had previously. She will follow up with the church worker as scheduled. We will see her for a physical in 3 months. Shortness of breath 06/20/2020 12/29/19 Assessment & Plan (06/20/2020 8:56 AM EDT): Ongoing shortness of breath following COVID-19 infection. No evidence for thromboembolic disease. Improvement with bronchodilators suggests reactive airway component. Will treat empirically and work-up further for reactive airway disease. Despite normal proBNP in the emergency room, recommend echocardiogram to rule out evidence of myocardial dysfunction. Snoring 06/20/2020 12/28/2024 Assessment & Plan (06/20/2020 8:55 AM EDT): With morbid obesity, history of hypertension and depression, high risk for obstructive sleep apnea. Referred to Dr. Barber for further evaluation. COLVIN (dyspnea on exertion) 05/14/2020 Assessment & Plan (05/14/2020 4:35 PM EST): This patient has persisting dyspnea on exertion. I just saw her in the office last week. She does not appear to have pneumonia. Now though and this telemedicine visit she appears to have more dyspnea even though her O2 sats are normal. She felt this might be a walking pneumonia. Referral to [facility], discussed with the triage nurses here in the office, they will set the patient up at the [facility] tomorrow. Patient in agreement with plan. If she develops fever with reduction in her O2 sats then she should go to the ER instead. Dyspnea due to COVID-19 05/06/202005/2023 Assessment & Plan (05/20/2020 10:59 AM EST): Patient is still having dyspnea at rest and is starting to develop tachyphylaxis from the albuterol MDI that she is taking every 3 hours as instructed by the ER physician. Since the groundglass opacities are still present in the chest CT presumably associated with the previous Covid infection we will refer the patient now to pulmonology to see if they can optimize treatment to aerate the apices and improve her lung function altogether. If anything breathing exercise might be good and may be a nebulizer. Patient finished up the antibiotics and from my discussion with her it did not appear that another round of antibiotics will be productive. Assessment & Plan (05/06/2020 10:14 PM EST): Patient positive for COVID-19 infection requiring hospitalization but limited stay and apparently limited persisting morbidity. Please see above for further details on impression and plan in the body of the note. A total of 30 minutes for this phone call necessitated. Delacroix eye, left 03/06/2020 04/06/2023 Assessment & Plan (03/06/2020 4:40 PM EST): Although this is most likely viral syndrome will treat with erythromycin as there was some discharge involved previously. This will cover any secondary infections from bacteria. The ointment itself for erythromycin could be also helpful for lack of tears as oftentimes the tear production goes down with conjunctivitis and hence the Grimelius Neli sensation within the eye. Discussed how contagious the virus can be, patient will be mindful about hygiene. 3 times daily for about 5 days on the erythromycin ointment 0.5%. Wheezing 05/01/2019 12/28/2024 Assessment & Plan (06/20/2020 8:54 AM EDT): Intermittent wheezing reportedly improved with bronchodilator ministration. Given history, likely consistent with post viral reactive airway disease, possible asthma. PLAN: Discontinue Flovent Start high-dose combination ICS/LAMA with Wixela 500/51 puff twice daily Continue albuterol as needed Obtain full pulmonary function studies Reassess in 6 weeks Assessment & Plan (05/01/2019 4:47 PM EST): The wheeziness shortness of breath will be treated as a reactive airway illness associated with the postnasal drip and laryngitis. Pro-air 2 puffs 4 times daily as needed help the patient with breathing should be adequate, will prescribe some prednisone if need be. Laryngitis 05/01/2019 12/28/2024 Assessment & Plan (05/09/2019 4:51 PM EST): She was still having a lot of ear pain right ear but not left. The exam was positive for a little bit of vascular congestion within the deep ear canal and tympanic membrane and middle ear that was not noted on the left-hand side. Back of the throat with a little bit of erythema. She just come off of the Z-Nino. Most likely this is eustachian tube dysfunction which she is experiencing. Nasal irrigation would work well and if the viral illness is on the decline she can use Flonase 2 sprays each nostril daily for 5 to 7 days. This can be obtained OTC. For now no further antibiotics indicated. Assessment & Plan (05/01/2019 4:47 PM EST): This is somewhat behaving like a viral laryngitis but patient has elements to suggest bacterial involvement. We will call in antibiotic to facilitate re- convalescence. Acute upper respiratory infection 05/01/2019 12/28/2024 Assessment & Plan (05/01/2019 4:48 PM EST): Primarily laryngitis but elements of postnasal drip associated with wheeziness cough. Treatment for bacterial component of illness. Elevated blood pressure read ing without diagnosis of hypertension 05/01/2019 04/06/2023 Assessment & Plan (05/09/2019 4:49 PM EST): Patient has blood pressure again elevated as previous. She does not have a history though of high blood pressure, previous readings have been in normal limits. At this point we would like to temporarily lower her blood pressure and protect her arteries. Start atenolol 50 mg daily and reassess in 30 days. Assessment & Plan (05/01/2019 4:50 PM EST): Repeat blood pressure was reconfirmed at 160/102, we will have the patient come back next week to reconfirm if this is still persisting. For now strict avoidance of Sudafed-containing products, pseudoephedrine, Afrin. Drink plenty of water, low-sodium diet adhere to Allergic rhinitis 01/17/2019 04/06/2023 Assessment & Plan (01/17/2019 11:44 AM EDT): Postinfectious right-sided ear pressure eustachian tube dysfunction and swelling of the eustachian tube. Notes need for antibiotics, patient encouraged to use the Flonase 1 spray each nostril twice daily for 10 days to modulate immune system and encouraged the improvement of the eustachian tube. Encounters Date Type Department Care Team Description 02/28/2025 Telephone [facility] Internal Medicine [address] [place] [address] Albina Bob, WHITNEY 02/26/2025 1:30 PM EST Office Visit [facility] Internal [facility] [address] [place] [address] Keith Evans MD Mid back pain (Primary Dx) 02/26/2025 Telephone [facility] Internal [facility] [address] [place] [address] Albina Bob, RN Appointment 02/22/2025 Orders Only [facility] Internal Medicine [address] [place] [address] Rory Porter MD 02/19/2025 Orders Only [facility] Internal Medicine [address] [place] [address] Rory Porter MD 02/15/2025 2:40 PM EST Office Visit [facility] Internal [facility] [address] [place] [address] Erick Urena PA-C Anxiety state (Primary Dx); Chest pain, unspecified type 02/07/2025 11:41 AM EST - 02/07/2025 11:59 PM EST Hospital Encounter [facility] [address] [place] [address] Erick Urena PA-C Discharge Disposition: Home or Self Care 02/05/2025 Orders Only [facility] Internal [facility] [address] [place] [address] Rory Porter MD 02/01/2025 Orders Only [facility] Internal [facility] [address] [place] [address] Rory Porter MD 01/31/2025 Telephone [facility] Internal [facility] [address] [place] [address] Albina Bob RN Results 01/31/2025 Orders Only [facility] [address] [place] [address] Keith Evans MD Obesity, morbid (Primary Dx); Chest pain, unspecified type 01/30/2025 8:28 AM EDT - 01/30/2025 11:59 PM EDT Hospital Encounter Non-Invasive Cardiology [address] [place] [id number] Erick Urena PA-C Discharge Disposition: Home or Self Care 01/30/2025 8:27 AM EDT Hospital Encounter Non-Invasive Cardiology [address] [place] [address] Erick Urena PA-C Discharge Disposition: Home or Self Care 01/30/2025 Orders Only [facility] [facility] [address] [place] [address] Rory Porter MD 01/04/2025 1:40 PM EDT Office Visit [facility] [address] [place] [address] E[place] Urena PA-C Flu vaccine need (Primary Dx); Chest pain, unspecified type; Anxiety state 12/28/2024 2:55 PM EDT - 12/28/2024 11:59 PM EDT Hospital Encounter Formerly [facility] [address] [place] [address] E[place] Urena PA-C Discharge Disposition: Home or Self Care 12/28/2024 1:20 PM EDT Office Visit [facility] Internal Medicine [address] [place] [address] E[place] Urena PA-C Chest pain, unspecified type (Primary Dx); Malaise and fatigue 12/28/2024 Procedure Pass [facility] [address] [place] [address] 12/28/2024 Procedure Pass Non-Invasive Cardiology [address] [place] [address] 12/26/2024 Documentation [facility] Internal Medicine [address] [place] [address] Keith Evans MD 12/25/2024 Telephone [facility] [address] [place] [address] Maru Mccormack TCM Visit from Last 3 Months Immunizations Immunization Administration Dates Next Due COVID-19 (Pre-01/25) Pfizer Vaccine, mRNA, PF 10/18/2020,09/27/2020 INFLUENZA, SPLIT VIRUS, TRIVALENT PF 01/04/2025, 04/07/2024 INFLUENZA, SPLIT VIRUS, TRIV ALENT W/ PRESERVATIVE IM 12/04/2021,04/08/2018 Influenza Quadrivalent Preservative Free IM 12/05,04/02/2022,03/06/2020 Pneumococcal polysaccharide PPSV23 04/26/2020 Tdap 04/08/2018 Family History Medical History Relation Comments Diabetes Mother Heart disease Mother Thyroid disease Sister Relation Status Comments Mother Sister Social History Tobacco Use Types Packs/Day Years Used Date Smoking Tobacco: Never Smokeless Tobacco: Never Tobacco Cessation:Counseling Given: Not Answered Alcohol Use Standard Drinks/Week Comments Not Currently [...] your housing situation today? I have kiko sing 03/31/2024 How many times have you move [...] Orientation Straight 04/02/2022 7: 48 AM EST Last Filed Vital Signs Vital Sign Reading [...] Mass Index 76.2 02/26/2025 1:12 PM EST Plan of Treatment Upcoming Encounters Date Type Department Care Team (Late st Contact Info) Description 03/26/2025 8:00 AM EST Appointment [address] [address] E[place] Urena PA-C [address] [place] [phone] 03/26/2025 9:00 AM EST Appointment [address] [address] E[place] Urena PA-C [address] [place] [phone] 03/26/2025 10:00 AM EST Appointment Non-Invasive Cardiology [address] [place] [address] E[place] Urena PA-C [address] [place] [phone] [email or web address] 03/26/2025 11:00 AM EST Appointment [facility] [address] [place] [address] E[place] Urena PA-C [address] [place] [address] 04/03/2025 10:20 AM EST Office Visit [facility] Internal Medicine [address] [place] [address] E[place] Urena PA-C [address] [place] [address] 07/17/2025 12:45 PM EDT Office Visit [facility] [address] [facility] 3rd Floor, [address] [place] [address] [phone] Breezy Ellis DO [address] [facility] [address] [place] [phone] [email or web address] Health Maintenance Due Date Last Done Comments PAP SMEAR 1993 COLOGUARD 2017 FIT TEST 2017 FOBT 2017 SIGMOIDOSCOPY 2017 VIRTUAL COLONOSCOPY 2017 PNEUMOCOCCAL VACCINES (50+ years) (2 of 2 - PCV) 2022 04/26/2020 RSV VACCINE (1 - Risk 50-74 years 1-dose series) 2022 ZOSTER VACCINES (1 of 2) 2022 DEPRESSION SCREENING 03/31/2025 03/31/2024, 03/31/20 24 COVID-19 VACCINE (3 - 2024- season) 2026 10/18/2020, 09/27/2020 Postponed from 12/04/2024 (Patient Declines / Guardian Declines) MAMMOGRAM 04/07/2026 04/07/2024, 1212/2021, 08/06/2015 SCREENING FOR DIABETES 04/07/2027 , 04/02/2022, 11/23/2016 Adult Td,Tdap Booster 04/08/2028 04/08/2018 LIPID PANEL 04/07/2029 04/07/2024, 05/2023, 04/02/2022, Additional history exists COLONOSCOPY 10/16/2032 10/16/2022 COLORECTAL CANCER SCREENING 10/16/2032 HIV ONE-TIME SCREENING (18-65 YEARS) Completed 06/16/2019 HEPATITIS C SCREENING Completed 04/02/2022 INFLUENZA VACCINE Completed 01/04/2025, , 12/23/2022, Additional history exists SMOKING STATUS SCREENING (Once After 26 Yrs) Completed 02/26/2025 HEPATITIS A VACCINES Aged Out No long er eligible based on patient's age to complete this topic HIB VACCINES Aged Out No longer eligi ble based on patient's age to complete this topic MENINGOCOCCAL VACCINES (ACWY) Aged Out No longer eligible based on patient's age to complete this topic MENINGOCOCCAL VACCINES (B) Aged Out N o longer eligible based on patient's age to complete this topic Medical Devices Not on file Procedures Procedure Name Priority Date/Time Associated Diagnosis Comments OUTSIDE MONITOR Routine 02/17/2025 10:17 AM EST OUTSIDE MONITOR Routine 02/17/2025 8:55 AM EST TTE COMPREHENSIVE W/ LVO CONTRAST Routine 02/07/2025 1:12 PM EST Chest pain, unspecified type OUTSIDE MONITOR Routine 02/04/2025 12:22 PM EST OUTSIDE MONITOR Routine 01/31/2025 8:00 AM EDT OUTSIDE MONITOR Routine 01/30/2025 10:40 AM EDT STRESS TEST EXERCISE Routine 01/30/2025 10:32 AM EDT Chest pain, unspecified type IRON AND IRON BINDING CAPACITY Routine 12/28/2024 2:54 PM EDT Malaise and fatigue LYME SCREEN WITH REFLEX TO WESTERN BLOT, BLOOD Routine 12/28/2024 2:54 PM EDT Malaise and fatigue OUTSIDE POTASSIUM LEVEL Routine 12/21/2024 OUTSIDE SERUM CREATININE LEVEL Routine 12/21/2024 LIPID PANEL Routine 04/07/2024 2:29 PM EST Routine general medical examination at a [facility] BI MAMMOGRAM SCREENING (BILATERAL) Routine 04/07/2024 2:01 PM EST Breast cancer screening by mammogram HM COLONOSCOPY FOR RESULT ENTRY ONLY Routine 10/16/2022 HEPATITIS C ANTIBODY, QUALITATIVE Routine 04/02/2022 10:33 AM EST Need for hepatitis C screening test OUTSIDE GLUCOSE FASTING Routine 11/23/2016 from Last 3 Months or Most Recently Relevant to Health Maintenance Results * Outside Monitor Report Only (02/17/2025 10:17 AM EST) Only the most recent of5 resultswithin the time period is included. us Historical Provider CV CARDIAC SERVICES ORDER EHSAN Final Result * TTE COMPREHENSIVE W/ LVO CONTRAST (02/07/2025 1:12 PM EST) Body Surface Area 2.77 m2 Height 164 cm Weight 202 kg Systolic BP 140 mmHg Diastolic BP 90 mmHg Left Atrium Dimension Anterior-Posterior 48 15 - 40 mm Aortic Valve Mean Gradient 7 mmHg Aortic Valve Time Velocity Integral 378.0 mm Aortic Valve Peak Velocity 1.9 m/s Aortic Valve Peak Gradient 14 mmHg Aortic Sinus Diameter 31 <40 mm Ascending Aorta Diameter 30 <36 mm Interventricular Septum Thickness 9 6 - 11 mm Left Ventricle Internal Diameter End Diastole 51 37 - 52 mm Left Ventricle Internal Diameter End Systole 34 <35 mm Left Ventricular Outflow Tract Diameter 17.0 mm LVOT VTI REST 307.0 mm Left Ventricular Outflow Tract Velocity 1.6 m/s Left Ventricular Outflow Tract Gradient at Rest 10 mmHg Left Ventricular Posterior Wall Thickness 14 6 - 11 mm Left Ventricle Ea Lateral Wave Speed 12.5 cm/s Left Ventricle Ea Septal Wave Speed 8.5 cm/s Mitral Valve Deceleration Time 229 ms Ejection Fraction 60 50 - 75 Percent Left Ventricle A Wave Speed 97.3 cm/s Left Ventricle E Wave Speed 90.8 cm/s Right Ventricle Basal Diameter 43 25 - 41 mm Tricuspid Valve Peak Velocity 2.8 m/s Raw LV EF% 56 % MV E/E' Tissue Velocity Lateral 7.26 Relative Wall Thickness 0.55 0.22 - 0.42 Left Ventricle indexed to BSA 82.1 g/m2 MV E/A ratio 0.9 MV E/e' septal 10.68 Left Ventricle E/e' Average 9.0 Aortic Valve Prosthetic Peak Gradient 14 mmHg Aortic Valve Prosthetic Mean Gradient 7 mmHg Aortic Valve Sinus Index by BSA 11 mm/m2 Aorta Sinus Index by Height 1.89 cm/m Aorta Sinus CSA index by Height 4.60 cm2/m Ascending Aorta Index 11 mm/m2 Asc Aorta CSA Index by Height 4.31 cm2/m Right Ventricle to Right Atrium Pressure Gradient 31 mmHg Right Ventricle Peak Systolic Pressure (Assuming RAP 10) 41 mmHg MGB CV ECHO TV RVSP (ASSUMING RAP OF 5) 36 mmHg RVSP (Exclusive of RAP) 31 mmHg MGB CV AV DIMENSIONLESS INDEX (PEAK) - STRESS ECHO DOBUT - REST 0.84 Ascending Aorta Index 11 mm Aortic Sinus Index 11 mm Ascending Aorta Diameter 11 mm Aortic Valve Sinus Index 1 11 19 - 27 mm AO ASC DIAM BSA INDEX 10.83 Echo E/Ea 10.68 Right Ventricle TAPSE 33 >=17 mm Right Ventricle Pulse Doppler S Wave 16.2 >=9.5 cm/s Right Atrium Area 20 cm2 Right Atrium Area index 7 cm2/m2 Anatomical Region Laterality Modality Heart Ultrasound Narrative 02/08/2025 9:02 AM EST Images from the original result were not included. 1. The indication is chest pain. The ejection fraction of the left ventricle is normal at 60 to 65%. Diastolic function is normal left ventricular thickness is normal and regional wall motion is normal. 2. Mild dilatation to the RV cavity of 43 mm. 3. Trileaflet aortic valve there is no evidence of aortic stenosis, the ascending aortic root is normal size. 4. Trace to mild tricuspid and mild mitral regurgitation, the PA pressure is normal. 5. Normal pericardium and no prior echo available for comparison. Left Ventricle The left ventricle is normal in size. There is normal wall thickness. There is normal left ventricular systolic function. The LV ejection fraction is 60% (calculated via the single dimension method). LV diastolic function appears within normal limits for age. The e' septal wave velocity is 8.5 cm/s. The e' lateral wave velocity is 12.5 cm/s. The average E/e' ratio is 9.0. Right Ventricle The right ventricle is dilated. The RV basal dimension is 43 mm. There is normal right ventricular systolic function. TAPSE is 33 mm. RV S' wave is 16.2 cm/s. Left Atrium The left atrium is dilated. The left atrial anterior-posterior dimension is 48 mm. There are normal flow patterns in the pulmonary vein. Right Atrium The right atrium is dilated. The right atrial area is 20 cm2. The IVC is suboptimally visualized. Mitral Valve The mitral valve appears normal. There is no mitral stenosis. There is trace mitral regurgitation. Tricuspid Valve The tricuspid valve appears normal. There is no tricuspid stenosis. There is trace to mild tricuspid regurgitation. The RV systolic pressure was calculated at 31 mmHg (using TR peak velocity of 2.8 m/s and exclusive of RA pressure). Normal pulmonary pressure. Aortic Valve The aortic valve is suboptimally visualized. There is no aortic stenosis. There is trace aortic regurgitation. The visualized portions of the thoracic aorta appear normal in size. Pulmonic Valve The pulmonic valve is suboptimally visualized. Pericardium There is no pericardial effusion. General Findings The study was technically difficult (4). Study quality explanation: obesity. Technique(s) used in the evaluation: Color flow Doppler and Spectral Doppler. The predominant rhythm during the study was sinus. Comparison Findings There are no prior studies for comparison. IAS/IVS The interatrial septum is suboptimally visualized. us [place] Urena PA-C CV ECHO ORDERABLES Final Resu lt * STRESS TEST EXERCISE (01/30/2025 10:32 AM EDT) Max Predicted Heart Rate 168 bpm [employer] Max BP Systolic 140 mmHg [facility] Max BP Diastolic 90 mmHg [facility] Max HR 179 BPM [facility] Resting HR 87 BPM [facility] Resting BP Systolic 140 mmHg [facility] Resting BP Diastolic 90 mmHg [facility] Peak METS 4.6 METS [facility] Peak HR 179 BPM [facility] Anatomical Region Laterality Modality Heart Other 01/30/2025 9:33 AM EDT 01/30/2025 10:26 AM EDT Narrative 01/30/2025 2:47 PM EDT Stress Findings The resting heart rate was 87 BPM. The resting BP was 140/90 mmHg. A peak heart rate of 179 BPM was achieved. ECG Pt exercised for 2:26 min on a DANIELLE protocol achieving 4.6 METS. Test terminated due to fatigue, shortness of breath, lightheadedness. Baseline resting HR was 87 bpm. Max heart rate achieved was 179 bpm (106% MPHR). 1. EKG - Baseline EKG showed sinus rhythm with low voltage QRS. During exercise ST-T wave becomes downsloping throughout inferolateral leads and V4 V 6. 2. SYMPTOMS -No chest pain. She did report shortness of breath and lightheadedness which prompted her to abort the test. 3. EXERCISE PHYSIOLOGY -Poor functional capacity for age. BP was very difficult to obtain due to size of arm. Was able to get a blood pressure of 140/90 on lower arm 4. ARRHYTHMIAS -Rare isolated PVC, some atrial bigeminy seen Conclusion -This test was nondiagnostic for ischemia due to not being able to achieve 3 minutes on the treadmill. There were some changes to her ST T wave segments however again nondiagnostic for ischemia. Would recommend repeating testing with nuclear imaging however given patient's current morbid obesity/size imaging will likely be unreliable. It would be a recommendation to have a cardiac consultation to discuss cardiac catheterization to assess further for patient's chest pain. Peri Heck, COVERSTITCH BINDER with Dr. Moore Response to Stress The patient exercised for minutes and seconds, achieving 4.6 METS at peak exercise. Baseline blood pressure was 140/90 mmHg, and baseline heart rate was 87 bpm. The patient achieved a peak heart rate of 179 bpm, which is% of their maximum predicted heart rate. us E[place] Urena PA-C CV STRESS ORDERABLES Final Re sult * Lyme Screen with Reflex to Immunoblot, Blood (12/28/2024 2:54 PM EDT) Lyme AB IgG Negative Negative [facility] Lyme AB IgM Negative Negative [facility] Blood 12/28/2024 2:54 PM EDT 12/28/2024 3:01 PM EDT us [place] Urena PA-C LAB BLOOD BKR ORDERABLES Jackie l Result [address] [address] * Iron and iron binding capacity (12/28/2024 2:54 PM EDT) IRON 80 30 - 160 ug/dL [facility] IRON BINDING CAPACITY 316 228 - 428 ug/dL [facility] TRANSFERRIN SATURAT. 25 15 - 50 % [facility] Blood 12/28/2024 2:54 PM EDT 12/28/2024 3:01 PM EDT E[place] Urena PA-C LAB BLOOD BKR ORDERABLES Jackie l Result Performing Organization Address [facility]/ZIP Co de Phone Number [address] [address] * Outside Potassium Level (12/21/2024) Potassium level - External 4.1 3.4 - 5.0 mmol/L Historical Provider MD LAB BLOOD ORDERABLES Jackie l Result * (ABNORMAL) Outside Serum Creatinine Level (12/21/2024) Creatinine, serum - External 0.73(A) 0.8 - 1.3 mg/dL Result [facility] Historical Provider MD LAB BLOOD ORDERABLES Jackie l Result * (ABNORMAL) Lipid panel (04/07/2024 2:29 PM EST) HDL 67 mg/dL [facility] Comment: Interpretation <40 mg/dL: Low HDL cholesterol (major risk factor for CHD) Greater than or equal to 60 mg/dL: High HDL cholesterol ( negative risk factor for CHD) HDL - cholesterol is affected by a number of factors, e.g. smoking, excerise, hormones, sex and age. CHOLESTEROL 181 0 - 240 mg/dL [facility] TRIGLYCERIDES 82 30 - 160 mg/dL [facility] LDL 98 50 - 129 mg/dL [facility] Comment: LDL levels in terms of risk for coronary heart disease: <100 mg/dL: Optimal 100-129 mg/dL: Near or above optimal 130-159 mg/dL: Borderline high 160-189 mg/dL: High >190 mg/dL: Very High CARDIAC RISK RATIO 2.7(L) 3.3 - 4.4 C [facility] Blood 04/07/2024 2:29 PM EST 04/07/2024 2:32 PM EST Keith Evans MD LAB BLOOD BKR ORDERABLES Final R esult Performing Organization Address City/[facility]/ZIP Co de Phone Number [address] [address] * COLONOSCOPY FOR RESULT ENTRY ONLY (10/16/2022) us Keith Evans MD HEALTH MAINTENANCE Edited Result - Final * Hepatitis C antibody, qualitative (04/02/2022 10:33 AM EST) HCV NON-REACTIV E NON-REACTI VE [facility] Blood 04/02/2022 10:3 3 AM EST 04/02/2022 10:39 AM EST Keith Evans MD LAB BLOOD BKR ORDERABLES Final R esult Performing Organization Address City/[facility]/ZIP Co de Phone Number [address] [address] * Outside Glucose,Fasting (11/23/2016) Glucose, fasting - External 87 65 - 99 mg/dL Historical Provider LAB BLOOD ORDERABLES Jackie l Result * MAMMOGRAPHY FOR RESULT ENTRY ONLY (08/06/2015) Mammogram BI-RADS 1 Historical [place] [facility] Final Result from Last 3 Months or Most Recently Relevant to Health Maintenance [place] [address] [place] [address] [place] [address] [place] [address] [place] [address] [facility] [address] [place] [place] [address] [place], [place] [address]O [facility] HMO Care Teams Weed Burner Relationship Specialty Start Date End Date Keith Evans MD [address] [place] [phone] [email or web address] PCP - General Internal Medicine 05/01/20 Additional Source Comments The information contained in this document represents components of the legal health record. It is not the complete legal health record.[facility]
--- OUTSIDE RECORDS SUMMARY | 2025-02-28 14:28 | XMS_ITS | Encounter Summary ---
Author Organization [facility] Address [address] [place] [phone] Phone Care Team Providers Care Bobbin Collector Name Role Phone Keith Evans MD Primary Care Provider [phone] Encounter Details Date Type Department Care Team (Late st Contact Info) Description 02/28/2025 Telephone [facility] [employer] [facility] Internal Medicine [address] [place], [place] [phone] Albian Bob, WHITNEY [address] [place], [place] [phone] [email or web address] Social History Tobacco Use Types Packs/Day Years [...] high school, GED, job training, learning the [place] language, technical skills, or developing parenting skills)? [...] AM EST documented as of this encounter Progress Notes * Albina Bob, WHITNEY - 02/28/2025 9:55 AM EST Images from the original note were not included. Vielka Quintanilla [facility] (supporting [place] Urena PA-C)5 minutes ago (9:45 AM) [place] I've had a cough since Wednesday and a sore throat. I'm now coughing up dark yellow flem balls and it feels like someone is sitting on my chest. It's Starting to be difficult to breathe especially when going up and down the stairs as well as walking around. Rubén Joiner Vielka Heck12 minutes ago (9:37 AM) Renny Vora, What symptoms are you experiencing that you are requesting a sick visit? This information will helpus better to get you scheduled. Thank you! Vielka Quintanilla g [facility] (supporting E[place] Urena PA-C)22 minutes ago (9:28 AM) [place] Appointment Request From: Vielka Heck With Provider: [place] Urena PA-C [[facility] Internal Medicine] Preferred Date Range: 02/28/2025 - 02/28/2025 Preferred Times: Any Reason for visit: Sick Visit Health Maintenance Topic: Comments: documented in this encounter Plan of Treatment Upcoming Encounters Date Type Department Care Team (Late st Contact Info) Description 03/26/2025 8:00 AM EST Appointment [address] [address] E[place] Urena PA-C [address] [place] [phone] [email or web address] 03/26/2025 9:00 AM EST Appointment [address] [address] E[place] Urena PA-C [address] [place] [phone] 03/26/2025 10:00 AM EST Appointment Non-Invasive Cardiology [address] [place] [address] E[place] Urena PA-C [address] [place] [address] [email or web address] 03/26/2025 11:00 AM EST Appointment [facility], Nuclear Medicine - [facility] [address] [place] [address] Erick Urena PA-C [address] [place] [address] [email or web address] 04/03/2025 10:20 AM EST Office Visit [facility] Internal Medicine [address] [place] [phone] Erick Urena PA-C [address] [place] [address] [phone] [email or web address] 07/17/2025 12:45 PM EDT Office Visit [facility] [address] [place] [address] [address] [facility], [address] [place] [address] Breezy Ellis DO [address] [place] [address] [place] [phone] documented as of this encounter Visit Diagnoses Not on filedocumented in this encounter Additional Health Concerns Assessment Noted Time PHQ-9 Depression Total Score: 9 03/31/20 24 11:36 PM EST PHQ-2 Depression Total Score: 4 03/31/20 24 11:36 PM EST documented as of this encounter Care Teams Bobbin Collector Relationship Specialty Start Date End Date Keith Evans MD [address] [place] [phone] PCP - General Internal Medicine 05/01/20 documented as of this encounter Additional Source Comments The information contained in this document represents components of the legal health record. It is not the complete legal health record.[facility]
--- OUTSIDE RECORDS SUMMARY | 2025-02-28 14:28 | XMS_ITS | Encounter Summary ---
Author Organization [facility] Address [address] [place] [address] Phone Care Team Providers Care Color Adviser Name Role Phone Keith Evans MD Primary Care Provider [phone] Encounter Details Date Type Department Care Team (Late st Contact Info) Description 02/22/2025 Orders Only [facility] Internal Medicine 40 [facility] ROSALINDA Stoll [address] Provider, MD Rory [address] [place] [address] Social History Tobacco Use Types Packs/Day Years [...] high school, GED, job training, learning the [place] language, technical skills, or developing parenting skills)? [...] AM EST documented as of this encounter Plan of Treatment Upcoming Encounters Date Type Department Care Team (Late st Contact Info) Description 03/26/2025 8:00 AM EST Appointment [facility], Nuclear Medicine - [address] [address] E[place] Urena PA-C [address] [place] [address] 03/26/2025 9:00 AM EST Appointment [address] [address] [place] Urena PA-C [address] [place] [address] 03/26/2025 10:00 AM EST Appointment Non-Invasive Cardiology [address] [place] [address] E[place] Urena PA-C [address] [place] [phone] 03/26/2025 11:00 AM EST Appointment [address] [address] E[place] Urena PA-C [address] [place] [phone] 04/03/2025 10:20 AM EST Office Visit [facility] Internal Medicine [address] [place] [address] E[place] Urena PA-C [address] [place] [address] [email or web address] 07/17/2025 12:45 PM EDT Office Visit [facility] [address] [place] [address] 3rd Floor, [address] [place] [address] Breezy Ellis DO 22 [facility] [address] [place] [address] [phone] documented as of this encounter Procedures Procedure Name Priority Date/Time Associated Diagnosis Comments OUTSIDE MONITOR Routine 02/17/2025 10:17 AM EST documented in this encounter Results * Outside Monitor Report Only (02/17/2025 10:17 AM EST) us Historical Provider CV CARDIAC SERVICES ORDER EHSAN Final Result documented in this encounter Visit Diagnoses Not on filedocumented in this encounter Additional Health Concerns Assessment Noted Time PHQ-9 Depression Total Score: 9 03/31/20 24 11:36 PM EST PHQ-2 Depression Total Score: 4 03/31/20 24 11:36 PM EST documented as of this encounter Care Teams Color Adviser Relationship Specialty Start Date End Date Keith Evans MD [address] [place] [phone] [email or web address] PCP - General Internal Medicine 05/01/20 documented as of this encounter Additional Source Comments The information contained in this document represents components of the legal health record. It is not the complete legal health record.[facility]
--- OUTSIDE RECORDS SUMMARY | 2025-02-28 14:28 | XMS_ITS | Encounter Summary ---
Author Organization [facility] Address [address] [facility] [address] [place] [address] Phone Care Team Providers Care Capacity Planning Analyst Name Role Phone Keith Evans MD Primary Care Provider [phone] Encounter Details Date Type Department Care Team (Late Contact Info) Description 05/20/2020 Ancillary Orders [facility],Outside Imaging [address] [place] [address] System, Provider [place] In, [place] [address] Social History Tobacco Use Types Packs/Day Years Used Date Smoking Tobacco: Never Smokeless Tobacco: Never Alcohol Use Standard Drinks/Week Comments Never 0 (1 standard drink = 0.6 oz pure alcohol) 1-2 drinks, once every 2-3 months Comments No Sex and Gender Information Value Date Recorded Sex Assigned at Female 05/15/2020 4:42 PM EST Legal Sex Female 9:07 AM EDT Gender Identity Female 05/15/2020 4:42 PM EST Sexual Orientation Straight 04/02/2022 7: 48 AM EST documented as of this encounter Plan of Treatment Upcoming Encounters Date Type Department Care Team (Late Contact Info) Description 03/26/2025 8:00 AM EST Appointment [facility], Nuclear Medicine - [address] [address] Eirck Urena PA-C 40 [place] [address] [email or web address] 03/26/2025 9:00 AM EST Appointment [address] [address] Erick Urena PA-C [address] [place] [address] 03/26/2025 10:00 AM EST Appointment Non-Invasive Cardiology [address] [place] [address] Erick Urena PA-C [address] [place] [email or web address] 03/26/2025 11:00 AM EST Appointment [address] [address] Erick Urena PA-C [address] [place] [address] [email or web address] 04/03/2025 10:20 AM EST Office Visit [facility] Internal Medicine [address] [place] [address] Erick Urena PA-C [address] [place] [address] [email or web address] 07/17/2025 12:45 PM EDT Office Visit [facility] 22 [facility] 3rd Floor, [address] [place], [place] [phone] Breezy Ellis DO 22 [facility] [address] [place] [address] [phone] documented as of this encounter Results * CT Chest Outside (No Interpretation) (04/26/2020 12:00 AM EST) Narrative SYSTEMGENERATED, DOCUMENTATION - 05/20/2020 1:59 PM EST This study is for PACS storage only and not for interpretation. us Provider Not In System PhD IMG OUTSIDE IMAGING W /OUT INTERPRETATION Final Result documented in this encounter Visit Diagnoses Not on filedocumented in this encounter Additional Health Concerns Infection Onset Date Last Indicated Resolved Time CoV-Risk 05/15/2020 05/15/2020 05/25/2020 1:25 AM EST CoV-Exposed Comment:Recent close contact documented in the Travel/Symptom Screening Form 05/15/2020 05/15/2020 05/30/2020 1:[address] CoV-Risk 01/09/2021 01/09/2021 01/19/2021 1:23 AM EDT COVID-19 02/21/2023 02/21/2023 03/14/2023 1:21 AM EST CoV-Risk 11/17/2023 11/17/2023 11/28/2023 1:22 AM EDT COVID-19 06/05/2024 06/05/2024 06/26/2024 1:21 AM EDT documented as of this encounter Care Teams Capacity Planning Analyst Relationship Specialty Start Date End Date Keith Evans MD [address] [place] [address] [email or web address] PCP - General Internal Medicine 05/01/20 documented as of this encounter Additional Source Comments The information contained in this document represents components of the legal health record. It is not the complete legal health record.[facility]
--- OUTSIDE RECORDS SUMMARY | 2025-02-28 14:28 | XMS_ITS | Encounter Summary ---
Author Organization [facility] Address [address] [place] [address] Phone Care Team Providers Care Piecer Name Role Phone Keith Evans MD Primary Care Provider Encounter Details Date Type Department Care Team (Late st Contact Info) Description 02/19/2025 Orders Only [facility] Internal Medicine 40 [facility] [place] ROSALINDA Stoll [address] Provider, MD Rory [address] [place] [address] Social History Tobacco Use Types Packs/Day Years [...] high school, GED, job training, learning the Korean language, technical skills, or developing parenting skills)? [...] Info) Description 03/26/2025 8:00 AM EST Appointment [facility], Nuclear Medicine - [address] [address] Erick Urena PA-C 40 [place] [address] [email or web address] 03/26/2025 9:00 AM EST Appointment [address] [address] Erick Urena PA-C [address] [place] [address] 03/26/2025 10:00 AM EST Appointment Non-Invasive Cardiology [address] [place] [address] Erick Urena PA-C [address] [place] [address] 03/26/2025 11:00 AM EST Appointment [address] [address] Erick Urena PA-C [address] [place] [address] 04/03/2025 10:20 AM EST Office Visit [facility] Internal Medicine 40 [place] [address] Erick Urena PA-C 40 [place] [address] [email or web address] 07/17/2025 12:45 PM EDT Office Visit [facility] [address] [place] [address] 3rd Floor, [address] [place] [address] Breezy Ellis DO 22 [facility] [address] [place] [address] [phone] documented as of this encounter Procedures Procedure Name Priority Date/Time Associated Diagnosis Comments OUTSIDE MONITOR Routine 02/17/2025 8:55 AM EST documented in this encounter Results * Outside Monitor Report Only (02/17/2025 8:55 AM EST) us Historical Provider CV CARDIAC SERVICES ORDER EHSAN Final Result documented in this encounter Visit Diagnoses Not on filedocumented in this encounter Additional Health Concerns Assessment Noted Time PHQ-9 Depression Total Score: 9 03/31/20 24 11:36 PM EST PHQ-2 Depression Total Score: 4 03/31/20 24 11:36 PM EST documented as of this encounter Care Teams Piecer Relationship Specialty Start Date End Date Keith Evans MD [address] [place] [address] [email or web address] PCP - General Internal Medicine 05/01/20 documented as of this encounter Additional Source Comments The information contained in this document represents components of the legal health record. It is not the complete legal health record.[facility]
--- OUTSIDE RECORDS SUMMARY | 2025-02-28 14:28 | XMS_ITS | Encounter Summary ---
Author Organization [facility] Address [address] [place] [address] Phone Care Team Providers Care Wallcovering Hanger Name Role Phone Keith Evans MD Primary Care Provider [phone] Encounter Details Date Type Department Care Team (Late st Contact Info) Description 02/05/2025 Orders Only [facility] Internal Medicine 40 [facility] ROSALINDA Stoll [address] Provider, MD Rory [address] [place] [address] Social History Tobacco Use Types Packs/Day Years [...] high school, GED, job training, learning the Mongolian language, technical skills, or developing parenting skills)? [...] Info) Description 03/26/2025 8:00 AM EST Appointment [facility], Nuclear Medicine - [address] [address] Erick Urena PA-C 40 [place] [address] [email or web address] 03/26/2025 9:00 AM EST Appointment [address] [address] Erick Urena PA-C [address] [place] [address] [email or web address] 03/26/2025 10:00 AM EST Appointment Non-Invasive Cardiology [address] [place] [address] Erick Urena PA-C [address] [place] [address] [email or web address] 03/26/2025 11:00 AM EST Appointment [address] [address] Erick Urena PA-C [address] [place] [address] [email or web address] 04/03/2025 10:20 AM EST Office Visit [facility] Internal Medicine 40 [place] [address] Erick Urena PA-C 40 [place] [address] 07/17/2025 12:45 PM EDT Office Visit [facility] [address] [place] [address] 3rd Floor, [address] [place] [address] Breezy Ellis DO 22 [facility] [address] [place] [address] [phone] documented as of this encounter Procedures Procedure Name Priority Date/Time Associated Diagnosis Comments OUTSIDE MONITOR Routine 02/04/2025 12:22 PM EST documented in this encounter Results * Outside Monitor Report Only (02/04/2025 12:22 PM EST) us Historical Provider CV CARDIAC SERVICES ORDER EHSAN Final Result documented in this encounter Visit Diagnoses Not on filedocumented in this encounter Additional Health Concerns Assessment Noted Time PHQ-9 Depression Total Score: 9 03/31/20 24 11:36 PM EST PHQ-2 Depression Total Score: 4 03/31/20 24 11:36 PM EST documented as of this encounter Care Teams Wallcovering Hanger Relationship Specialty Start Date End Date Keith Evans MD [address] [place] [address] [email or web address] PCP - General Internal Medicine 05/01/20 documented as of this encounter Additional Source Comments The information contained in this document represents components of the legal health record. It is not the complete legal health record.[facility]
--- OUTSIDE RECORDS SUMMARY | 2025-02-28 14:28 | XMS_ITS | Encounter Summary ---
Author Organization [facility] Address [address] [place] [address] Phone Care Team Providers Care Bag Cutter Name Role Phone Keith Evans MD Primary Care Provider [phone] Encounter Details Date Type Department Care Team (Late st Contact Info) Description 01/30/2025 Orders Only [facility] Internal Medicine 40 [facility] ROSALINDA Stoll [address] Provider, MD Rory [address] [place] [address] Social History Tobacco Use Types Packs/Day Years [...] high school, GED, job training, learning the Romanian language, technical skills, or developing parenting skills)? [...] Info) Description 03/26/2025 8:00 AM EST Appointment [facility], Nuclear Medicine - [address] [address] Erick Urena PA-C 40 [place] [address] 03/26/2025 9:00 AM EST Appointment [address] [address] Erick Urena PA-C [address] [place] [address] 03/26/2025 10:00 AM EST Appointment Non-Invasive Cardiology [address] [place] [address] Erick Urena PA-C [address] [place] [address] [email or web address] 03/26/2025 11:00 AM EST Appointment [address] [address] Erick Urena PA-C [address] [place] [address] 04/03/2025 10:20 AM EST Office Visit [facility] Internal Medicine 40 [place] [address] Erick Urena PA-C 40 [place] [address] [email or web address] 07/17/2025 12:45 PM EDT Office Visit [facility] [address] [place] [address] 3rd Floor, [address] [place] [address] Breezy Ellis DO 22 [facility] [address] [place] [address] [phone] documented as of this encounter Procedures Procedure Name Priority Date/Time Associated Diagnosis Comments OUTSIDE MONITOR Routine 01/30/2025 10:40 AM EDT documented in this encounter Results * Outside Monitor Report Only (01/30/2025 10:40 AM EDT) us Historical Provider CV CARDIAC SERVICES ORDER EHSAN Final Result documented in this encounter Visit Diagnoses Not on filedocumented in this encounter Additional Health Concerns Assessment Noted Time PHQ-9 Depression Total Score: 9 03/31/20 24 11:36 PM EST PHQ-2 Depression Total Score: 4 03/31/20 24 11:36 PM EST documented as of this encounter Care Teams Bag Cutter Relationship Specialty Start Date End Date Keith Evans MD [address] [place] [address] [email or web address] PCP - General Internal Medicine 05/01/20 documented as of this encounter Additional Source Comments The information contained in this document represents components of the legal health record. It is not the complete legal health record.[facility]
--- OUTSIDE RECORDS SUMMARY | 2025-02-28 14:28 | XMS_ITS | Encounter Summary ---
Author Organization [facility] Address [address] [place] [address] Phone Care Team Providers Care Aeroplane Pilot Name Role Phone Keith Evans MD Primary Care Provider Encounter Details Date Type Department Care Team (Late st Contact Info) Description 12/28/2024 Procedure Pass Non-Invasive Cardiology 30 [place] [address] Social History Tobacco Use Types Packs/Day Years [...] high school, GED, job training, learning the Wallisian language, technical skills, or developing parenting skills)? [...] Info) Description 03/26/2025 8:00 AM EST Appointment [facility], Nuclear Medicine - [address] [address] Erick Urena PA-C 40 [place] [address] 03/26/2025 9:00 AM EST Appointment [address] [address] Erick Urena PA-C [address] [place] [address] 03/26/2025 10:00 AM EST Appointment Non-Invasive Cardiology [address] [place] [address] Erick Urena PA-C [address] [place] [phone] [email or web address] 03/26/2025 11:00 AM EST Appointment [address] [address] Erick Urena PA-C [address] [place] [address] 04/03/2025 10:20 AM EST Office Visit [facility] Internal Medicine [address] [place] [address] Erick Urena PA-C [address] [place] [address] 07/17/2025 12:45 PM EDT Office Visit [facility] [address] [place] [address] 3rd [facility], [address] [place] [address] [phone] Breezy Ellis DO [address] [phone] documented as of this encounter Visit Diagnoses Not on filedocumented in this encounter Additional Health Concerns Assessment Noted Time PHQ-9 Depression Total Score: 9 03/31/20 24 11:36 PM EST PHQ-2 Depression Total Score: 4 03/31/20 24 11:36 PM EST documented as of this encounter Care Teams Aeroplane Pilot Relationship Specialty Start Date End Date Keith Evans MD 40 [place] [address] [email or web address] PCP - General Internal Medicine 05/01/20 documented as of this encounter Additional Source Comments The information contained in this document represents components of the legal health record. It is not the complete legal health record.[facility]
--- OUTSIDE RECORDS SUMMARY | 2025-02-28 14:28 | XMS_ITS | Encounter Summary ---
Author Organization [facility] Address [address] [employer] [address] [facility] [address] [place] [address] Phone Care Team Providers Care Service Vehicle Operator Name Role Phone Keith Evans MD Primary Care Provider [phone] Reason for Visit * Reason Onset Date Comments Appointment 02/26/2025 Encounter Details Date Type Department Care Team (Late st Contact Info) Description 02/26/2025 Telephone [facility] Internal Medicine 40 [place], [place] [phone] Albina Bob, WHITNEY 40 [place], [place] [phone] [email or web address] Appointment Social History Tobacco Use Types Packs/Day Years [...] high school, GED, job training, learning the Slovenian language, technical skills, or developing parenting skills)? [...] of this encounter Progress Notes * Albina Bob RN - 02/26/2025 7:59 AM EST Images from the original note were not included. Vielka Quintanilla [facility] (supporting Erick Urena PA-C)Yesterday (12:33 AM) [place] Appointment Request From: Vielka Heck With Provider: Erick Urena PA-C [[facility] Internal Medicine] Preferred Date Range: 02/26/2025 - 02/26/2025 Preferred Times: Any Reason for visit: Sick Visit Health Maintenance Topic: Comments: documented in this encounter Plan of Treatment Upcoming Encounters Date Type Department Care Team (Late st Contact Info) Description 03/26/2025 8:00 AM EST Appointment [address] [address] Erick Urena PA-C [address] [place] [address] [email or web address] 03/26/2025 9:00 AM EST Appointment [address] [address] Erick Urena PA-C [address] [place] [address] [email or web address] 03/26/2025 10:00 AM EST Appointment Non-Invasive Cardiology [address] [place] [address] Erick Urena PA-C [address] [place] [address] [email or web address] 03/26/2025 11:00 AM EST Appointment [address] [address] Erick Urena PA-C [address] [place] [address] [email or web address] 04/03/2025 10:20 AM EST Office Visit [facility] Internal Medicine 40 [place], [place] [phone] Erick Urena PA-C 40 [place], [place] [phone] 07/17/2025 12:45 PM EDT Office Visit [facility] 22 [facility] 3rd Floor, [address] [place], [place] [phone] Breezy Ellis DO 22 [facility] [address] [place] [address] [phone] documented as of this encounter Visit Diagnoses Not on filedocumented in this encounter Additional Health Concerns Assessment Noted Time PHQ-9 Depression Total Score: 9 03/31/20 24 11:36 PM EST PHQ-2 Depression Total Score: 4 03/31/20 24 11:36 PM EST documented as of this encounter Care Teams Service Vehicle Operator Relationship Specialty Start Date End Date Keith Evans MD 40 [place] [address] PCP - General Internal Medicine 05/01/20 documented as of this encounter Additional Source Comments The information contained in this document represents components of the legal health record. It is not the complete legal health record.[facility]
--- OUTSIDE RECORDS SUMMARY | 2025-02-28 14:28 | XMS_ITS | Encounter Summary ---
Author Organization [facility] Address [address] [facility] [address] [place] [address] Phone Care Team Providers Care Meat Press Operator Name Role Phone Keith Evans MD Primary Care Provider [phone] Encounter Details Date Type Department Care Team (Late Contact Info) Description 05/20/2020 Ancillary Orders [facility],Outside Imaging 30 [place] [address] System, Provider [place] In, [place] [address] Social History Tobacco Use Types Packs/Day Years [...] Info) Description 03/26/2025 8:00 AM EST Appointment [facility], Nuclear Medicine - [address] [address] Erick Urena PA-C 40 [place] [address] 03/26/2025 9:00 AM EST Appointment [address] [address] Erick Urena PA-C [address] [place] [address] 03/26/2025 10:00 AM EST Appointment Non-Invasive Cardiology [address] [place] [address] Erick Urena PA-C [address] [place] [address] 03/26/2025 11:00 AM EST Appointment [address] [address] Erick Urena PA-C [address] [place] [address] 04/03/2025 10:20 AM EST Office Visit [facility] Internal Medicine [address] [place] [address] Erick Urena PA-C [address] [place] [address] 07/17/2025 12:45 PM EDT Office Visit [facility] 22 [facility] 3rd Floor, [address] [place], [place] [phone] Breezy Ellis DO 22 [facility] [address] [place] [address] [phone] documented as of this encounter Results * XR Chest Outside (No Interpretation) (04/24/2020 12:00 AM EST) Narrative SYSTEMGENERATED, DOCUMENTATION - 05/20/2020 1:58 PM EST This study is for PACS [...] documented as of this encounter Care Teams Meat Press Operator Relationship Specialty Start Date End Date Keith Evans MD [address] [place] [address] [email or web address] PCP - General Internal Medicine 05/01/20 documented as of this encounter Additional Source Comments The information contained in this document represents components of the legal health record. It is not the complete legal health record.[facility]
--- OUTSIDE RECORDS SUMMARY | 2025-02-28 14:29 | XMS_ITS | Encounter Summary ---
Author Organization [facility] Address [address] [place] [address] Phone Care Team Providers Care Rag Sorter And Cutter Name Role Phone Keith Evans MD Primary Care Provider [phone] Encounter Details Date Type Department Care Team (Late st Contact Info) Description 12/28/2024 Procedure Pass [facility] 30 [place] [address] Social History Tobacco Use Types Packs/Day Years [...] high school, GED, job training, learning the Argentine language, technical skills, or developing parenting skills)? [...] Info) Description 03/26/2025 8:00 AM EST Appointment [facility], Nuclear Medicine - [address] [address] Erick Urena PA-C 40 [place] [address] 03/26/2025 9:00 AM EST Appointment [address] [address] Erick Urena PA-C [address] [place] [address] 03/26/2025 10:00 AM EST Appointment Non-Invasive Cardiology [address] [place] [address] Erick Urena PA-C [address] [place] [address] 03/26/2025 11:00 AM EST Appointment [address] [address] Erick Urena PA-C [address] [place] [address] 04/03/2025 10:20 AM EST Office Visit [facility] Internal Medicine [address] [place] [address] Erick Urena PA-C [address] [place] [address] 07/17/2025 12:45 PM EDT Office Visit [facility] [address] [place] [address] 3rd [facility], [address] [place] [address] [phone] Breezy Ellis DO [address] [phone] documented as of this encounter Visit Diagnoses Not on filedocumented in this encounter Additional Health Concerns Assessment Noted Time PHQ-9 Depression Total Score: 9 03/31/20 24 11:36 PM EST PHQ-2 Depression Total Score: 4 03/31/20 24 11:36 PM EST documented as of this encounter Care Teams Rag Sorter And Cutter Relationship Specialty Start Date End Date Keith Evans MD 40 [place] [address] [email or web address] PCP - General Internal Medicine 05/01/20 documented as of this encounter Additional Source Comments The information contained in this document represents components of the legal health record. It is not the complete legal health record.[facility]
--- OUTSIDE RECORDS SUMMARY | 2025-02-28 14:29 | XMS_ITS | Encounter Summary ---
Author Organization [facility] Address [address] [place] [address] Phone Care Team Providers Care Outside Property Agent Name Role Phone Keiht Evans MD Primary Care Provider [phone] Encounter Details Date Type Department Care Team (Late st Contact Info) Description 02/01/2025 Orders Only [facility] Internal Medicine [address] [facility] [place], [facility] ROSALINDA Stoll [phone] Provider, MD Rory [address] [place] [address] Social History Tobacco Use Types Packs/Day Years [...] high school, GED, job training, learning the Urdu language, technical skills, or developing parenting skills)? [...] Info) Description 03/26/2025 8:00 AM EST Appointment [facility], Nuclear Medicine - [address] [address] Erick Urena PA-C [address] [place] [phone] [email or web address] 03/26/2025 9:00 AM EST Appointment [address] [address] Erick Urena PA-C [address] [place] [phone] [email or web address] 03/26/2025 10:00 AM EST Appointment Non-Invasive Cardiology [address] [place] [address] Erick Urena PA-C [address] [place] [phone] [email or web address] 03/26/2025 11:00 AM EST Appointment [address] [address] Erick Urena PA-C [address] [place] [address] [email or web address] 04/03/2025 10:20 AM EST Office Visit [facility] Internal Medicine [address] [place] [address] Erick Urena PA-C [address] [place] [address] 07/17/2025 12:45 PM EDT Office Visit [facility] [address] [place] [address] 3rd Floor, [address] [place] [address] Breezy Ellis DO [address] [facility] [address] [place] [id number] documented as of this encounter Procedures Procedure Name Priority Date/Time Associated Diagnosis Comments OUTSIDE MONITOR Routine 01/31/2025 8:00 AM EDT documented in this encounter Results * Outside Monitor Report Only (01/31/2025 8:00 AM EDT) us Historical Provider [facility] CARDIAC SERVICES ORDER EHSAN Final Result documented in this encounter Visit Diagnoses Not on filedocumented in this encounter Additional Health Concerns Assessment Noted Time PHQ-9 Depression Total Score: 9 03/31/20 24 11:36 PM EST PHQ-2 Depression Total Score: 4 03/31/20 24 11:36 PM EST documented as of this encounter Care Teams Outside Property Agent Relationship Specialty Start Date End Date Keith Evans MD [address] [place] [address] [email or web address] PCP - General Internal Medicine 05/01/20 documented as of this encounter Additional Source Comments The information contained in this document represents components of the legal health record. It is not the complete legal health record.[facility]
--- OUTSIDE RECORDS SUMMARY | 2025-02-28 14:29 | XMS_ITS | Encounter Summary ---
Author Organization [facility] Address [address] [place] [address] Phone Care Team Providers Care Arbitrator Name Role Phone Keith Evans MD Primary Care Provider [phone] Encounter Details Date Type Department Care Team (Late st Contact Info) Description 05/15/2020 Procedure Pass [facility], Ct Scan - [facility] [address] [place] [address] Social History Tobacco Use Types Packs/Day Years [...] AM EST documented as of this encounter Functional Status * Calculated C-SSRS Risk Score (Lifetime/Recent) Answer Date of Assessment Author No Risk Indicated 05/15/2020 4:45 PM Christina Solomon RN * [place] Suicide Severity Rating Scale (Screener/Recent Self-Report) Question Answer Date of Assessment Author 1. Wish to be (Past 1 Month) No 05/15/2020 4:42 PM Christina Solomon RN 2. Non-Specific Active Suici monet Thoughts (Past 1 Month) No 05/15/2020 4:45 PM EST Jacoby Abernathy RN 6. Suicidal Behavior (Lifetime) No 4:45 PM EST Christina Abernathy RN documented as of this encounter Plan of Treatment Upcoming Encounters Date Type Department Care Team (Late st Contact Info) Description 03/26/2025 8:00 AM EST Appointment [address] [address] Erick Urena PA-C [address] [place] [phone] 03/26/2025 9:00 AM EST Appointment [address] [address] Erick Urena PA-C [address] [place] [phone] 03/26/2025 10:00 AM EST Appointment Non-Invasive Cardiology [address] [place] [address] Erick Urena PA-C [address] [place] [phone] 03/26/2025 11:00 AM EST Appointment [address] [address] Erick Urena PA-C [address] [place] [phone] 04/03/2025 10:20 AM EST Office Visit [facility] Internal Medicine [address] [place] [address] Erick Urena PA-C [address] [place] [phone] 07/17/2025 12:45 PM EDT Office Visit [facility] [address] [facility] 3rd Floor, [address] [place] [address] Breezy Ellis DO 22 [facility] [address] [place] [address] documented as of this encounter Visit Diagnoses [...] documented as of this encounter Care Teams Arbitrator Relationship Specialty Start Date End Date Keith Evans MD [address] [place] [phone] PCP - General Internal Medicine 05/01/20 documented as of this encounter Additional Source Comments The information contained in this document represents components of the legal health record. It is not the complete legal health record.[facility]
== END 2025-02-28 12:58 | disposition home or self-care (01) ==
PROVIDERS: PCP Internal Medicine; Visit Provider Physician Assistant Medical
DX: R05.9 Cough, unspecified (principal); R05.1 Acute cough